=== PATIENT | female | born 1965 | race African-American/Black ===

== ENCOUNTER 2017-12-06 12:13 | Inpatient (IN) | payer OTHER ==
[2017-12-06 16:05] VITALS: BMI 24.6
--- NOTE | 2017-12-06 20:53 | HP ---
CIWA Score - CIWA Score Nausea/Vomitin-No Nausea/No Vomiting Muscle Tremors: 2 Anxiety: 2 Agitation: 2 Paroxysmal Sweats: 2 Orientation: 0-Oriented Tacttile Disturbances: 2-Mild Itch/Numbness/Burn (b/t feet, hands and knees) Auditory Disturbances: 0-None Visual Disturbances: 1-Very Mild Sensitivity Headache: 1-Very Mild CIWA-Ar Total Score: [address] [facility] - HPI Chief Complaint: "I am feeling sick" Allergies/Adverse Reactions: Allergies Allergy/AdvReac Type Severity Reaction Status Date / Time aspirin Allergy Intermediate Verified 12/06/17 19:58 Lactose-Intolerance AdvReac Severe Uncoded 12/06/17 19:58 History of Present Illness: 52 yo female with hx of alcohol, nicotine, marijuana and cocaine dependence is here seeking detox. PMHX: HTN , hyperlipidemia, GERD, OA multiple location, depression, PTSD, anxiety , bipolar. Denies suicidal / homicidal ideation or suicide attempts. Last detox 2 years ago at [facility]. Longest period of sobriety 5.5 years. Exam Limitations: No Limitations - Ebola screening Have you traveled outside of the country in the last 21 days: No (N) Have you had contact with anyone from an Ebola affected area: No Have you been sick,other than usual withdrawal symptoms: No Do you have a fever: No - Review of Systems Constitutional: Chills, Changes in sleep, Unintentional Wgt. Loss (5 lbs a 4 day period) EENT: reports: Blurred Vision (wears glasses), Dental Problems (dental pain, bottom tooth chipped) Respiratory: reports: No Symptoms reported Cardiac: reports: No Symptoms Reported GI: reports: Poor Fluid Intake : reports: No Symptoms Reported Musculoskeletal: reports: Back Pain, Joint Pain Integumentary: reports: No Symptoms Reported Neuro: reports: Numbness, Tingling, Dizziness Endocrine: reports: Increased Thirst Hematology: reports: No Symptoms Reported Psychiatric: reports: Orientated x3, Anxious Patient History - Patient Medical History Hx Anemia: No Hx Asthma: No Hx Chronic Obstructive Pulmonary Disease (COPD): No Hx Cancer: No Hx Cardiac Disorders: No Hx Congestive Heart Failure: No (hjeart murmur ) Hx Hypertension: Yes (on medication) Hx Hypercholesterolemia: Yes (on med) Hx Pacemaker: No HX Cerebrovascular Accident: No Hx Seizures: No Hx Dementia: No Hx Diabetes: No Hx Gastrointestinal Disorders: No Hx Liver Disease: No Hx Genitourinary Disorders: Yes (HPV in 10/2014) Hx Sexually Transmitted Disorders: Yes (HVP) Hx Renal Disease (ESRD): No Hx Thyroid Disease: No Hx Human Immunodeficiency Virus (HIV): No (last 01/07 ) Hx Hepatitis C: No Hx Depression: Yes Hx Suicide Attempt: No Hx Bipolar Disorder: Yes (no med) Hx Schizophrenia: No - Patient Surgical History Past Surgical History: No Hx Neurologic Surgery: No Hx Cataract Extraction: No Hx Cardiac Surgery: No Hx Lung Surgery: No Hx Breast Surgery: No Hx Breast Biopsy: No Hx Abdominal Surgery: No Hx Appendectomy: No Hx Cholecystectomy: No Hx Genitourinary Surgery: No Hx Section: No Hx Orthopedic Surgery: No Anesthesia Reaction: No - PPD History Previous Implant?: Yes Documented Results: Positive w/o proof PPD to be Administered?: No - Reproductive History Last Menstrual Period: 11/15/09 Patient : No - Smoking Cessation Smoking history: Current every day smoker Have you smoked in the past 12 months: Yes Aproximately how many cigarettes per day: 20 Hx Chewing Tobacco Use: No Initiated information on smoking cessation: Yes 'Breaking Loose' booklet given: 12/06/17 - Substance & Tx. History Hx Alcohol Use: Yes Hx Substance Use: Yes Substance Use Type: Alcohol, Cocaine, Marijuana Hx Substance Use Treatment: Yes (Last detox 2 years ago at [facility]) - Substances Abused Alcohol Route: Oral Frequency: Daily Amount used: liquor- 1 pint Age of first use: 12 Date of Last Use: 12/06/17 Crack Route: Smoking Frequency: Daily Amount used: 10 bags Age of first use: 18 Date of Last Use: 12/06/17 Family Disease History - Family Disease History Family Disease History: Other: Father (alcohol,), Mother () Admission Physical Exam [facility] - Vital Signs Vital Signs: Vital Signs - 24 hr 12/06/17 16:01 Pulse Rate 74 Respiratory 20 Rate Blood Pressure 140/89 - Physical General Appearance: Yes: Mild Distress, Sweating, Anxious HEENTM: Yes: EOMI, Hearing grossly Normal, Normal ENT Inspection, Normocephalic , Pharynx Normal, Tm's normal, Other (poor dentation) Respiratory: Yes: Chest Non-Tender, Lungs Clear, Normal Breath Sounds, No Respiratory Distress, No Accessory Muscle Use Neck: Yes: No masses,lesions,Nodules, Trachea in good position Breast: Yes: Breast Exam Deferred Cardiology: Yes: Regular Rhythm, Regular Rate, Murmur Abdominal: Yes: Normal Bowel Sounds, Non Tender, Flat, Soft Genitourinary: Yes: Within Normal Limits Back: Yes: Normal Inspection Musculoskeletal: Yes: full range of Motion, Gait Steady Extremities: Yes: Normal Capillary Refill, Normal Inspection, Normal Range of Motion Neurological: Yes: restaurant shift leader II-XII NML intact, Fully Oriented, Alert, Motor Strength 5/5 Integumentary: Yes: Normal Color, Dry, Warm Lymphatic: Yes: Within Normal Limits - Diagnostic (1) Alcohol dependence with withdrawal Current Visit: Yes Status: Acute Qualifiers: Complication of substance-induced condition: uncomplicated Qualified Code(s ): F10.230 - Alcohol dependence with withdrawal, uncomplicated (2) Dehydration Current Visit: Yes Status: Acute (3) Essential hypertension Current Visit: No Status: Acute Comment: . (4) Hypercholesterolemia Current Visit: Yes Status: Chronic Comment: . (5) Nicotine dependence Current Visit: Yes Status: Acute Qualifiers: Nicotine product type: cigarettes Comment: . (6) Weight loss Current Visit: Yes Status: Acute (7) Cannabis dependence Current Visit: Yes Status: Chronic Comment: . (8) Cocaine dependence Current Visit: Yes Status: Chronic Qualifiers: Substance use status: uncomplicated Qualified Code(s): F14.20 - Cocaine dependence, uncomplicated Comment: . (9) Eczema Current Visit: Yes Status: Chronic Qualifiers: Eczema type: unspecified Qualified Code(s): L30.9 - Dermatitis, unspecified Comment: . Cleared for Admission [facility] - Detox or Rehab [facility] Level of Care: Medically Managed Detox Regimen/Protocol: Librium [facility] Breath Alcohol Content Breath Alcohol Content: 0 Urine Pregancy Test - Result Urine Test Results: Negative- NO Line Present Urine Drug Screen - Results Drug Screen Negative: No Urine Drug Screen Results: THC-Marijuana, CHRISTINE-Cocaine
[2017-12-06] MEDS ORDERED: hydrOXYzine PAMOATE 50 MG CAPSULE (FP) PO PRN (21:02)
[2017-12-06] MEDS ORDERED: ACETAMINOPHEN 325 MG TABLET (FP) PO PRN (21:02)
[2017-12-06] MEDS ORDERED: MENTHOL/PHENOL 1 EACH UD MM PRN (21:02)
[2017-12-06] MEDS ORDERED: MAGNESIUM HYDROX 2400MG/30ML ORAL SUSPENSION 30 ML CUP PO PRN (21:02)
[2017-12-06] MEDS ORDERED: NICOTINE POLACRILEX 2 MG GUM BC PRN (21:02)
[2017-12-06] MEDS ORDERED: LOPERAMIDE HCL 2 MG CAPSULE PO PRN (21:02)
[2017-12-06] MEDS ORDERED: chlordiazePOXIDE HCL 25 MG CAPSULE PO ONE (21:02)
[2017-12-06] MEDS ORDERED: MAGNESIUM CITRATE 300 ML BOTTLE PO PRN (21:02)
[2017-12-06] MEDS ORDERED: MAG HYDROX/AL HYDROX/SIMETH 30 ML UNIT-DOSE CUP PO PRN (21:02)
[2017-12-06] MEDS ORDERED: guaiFENesin/D-METHORPHAN HB 10 ML UNIT-DOSE CUPS PO PRN (21:02)
[2017-12-06] MEDS ORDERED: chlordiazePOXIDE HCL 25 MG CAPSULE PO PRN (21:02)
[2017-12-06] MEDS ORDERED: P-EPHED 60MG/TRIPROLIDI 2.5MG TABLET PO PRN (21:02)
[2017-12-06] MEDS ORDERED: MELATONIN 5 MG TABLETS PO PRN (22:00)
[2017-12-06] MEDS: chlordiazePOXIDE HCL 25 MG CAPSULE PO SCH (22:26)
[2017-12-06] MEDS: NAPROXEN 500 MG TABLET (FP) PO SCH (22:26)
[2017-12-06] MEDS: CALCIUM 500MG/VIT-D 200 UNITS COMBO TABLET (FP) PO SCH (22:27)
[2017-12-06] MEDS: THIAMINE HCL 100 MG TABLET (FP) PO SCH (22:27)
[2017-12-06] MEDS ORDERED: BENZOCAINE 20 % GEL 9 GM TUBE MM PRN (23:15)
[2017-12-06 23:34] LABS: URINE APPEARANCE SLCLOUDY; URINE BILIRUBIN NEGATIVE (<2.0 mg/dL); URINE BLOOD NEGATIVE (NEGATIVE); URINE COLOR DKYELLOW; URINE GLUCOSE (UA) 1+ (NEGATIVE); URINE KETONE NEGATIVE (NEGATIVE); URINE LEUK ESTERASE TRACE (NEGATIVE); URINE NITRITE NEGATIVE (NEGATIVE); URINE UROBILINOGEN 4.0 E.U/dl mg/dL (0.2-1.0)
[2017-12-06] MEDS: LIDOCAINE 5% TOPICAL PATCH TP SCH (23:56)
[2017-12-06] MEDS: LIDOCAINE PATCH REMOVAL MC SCH (23:57)
[2017-12-07 00:11] LABS: URINE PROTEIN 1+ (NEGATIVE)
[2017-12-07 00:27] LABS: CALCIUM OXALATE CRYSTALS MANY /hpf (NONE SEEN); EPI CELLS RARE /HPF (FEW); URINE MUCUS FEW
[2017-12-07] MEDS: chlordiazePOXIDE HCL 25 MG CAPSULE PO SCH ×4 (06:13→22:31)
[2017-12-07] MEDS: METOPROLOL TARTRATE 50 MG TABLET (FP) PO SCH ×2 (06:14→18:00)
[2017-12-07] MEDS: HYDROCHLOROTHIAZIDE 25 MG TABLET (FP) PO SCH (06:14)
[2017-12-07 10:39] LABS: HEMOGLOBIN 12.7 GM/dL (10.7-15.3); MCH 30.8 pg (25.7-33.7); MCHC 33.4 g/dl (32.0-36.0); MEAN PLT VOLUME 9.9 fl (7.5-11.1); PLATELET COUNT 245 K/MM3 (134-434); RBC 4.13 M/mm3 (3.60-5.2); RDW 13.7 % (11.6-15.6); WHITE BLOOD COUNT 5.4 K/mm3 (4.0-10.0)
[2017-12-07 10:42] LABS: ALBUMIN 3.3 g/dl (3.4-5.0); ANION GAP 6 (8-16); BLOOD UREA NITROGEN 9 mg/dL (7-18); CHLORIDE 107 mmol/L (98-107); CO2 31 mmol/L (21-32); CREATININE 0.8 mg/dL (0.55-1.02); GLUCOSE,RANDOM 94 mg/dL (74-106); POTASSIUM 3.7 mmol/L (3.5-5.1); SGOT/AST 15 U/L (15-37); SGPT/ALT 17 U/L (12-78); SODIUM 144 mmol/L (136-145)
[2017-12-07 10:44] LABS: ALK PHOS 48 U/L (45-117); BILIRUBIN,TOTAL 0.4 mg/dL (0.2-1.0); TOT PROT 6.2 g/dl (6.4-8.2)
[2017-12-07] MEDS: CALCIUM 500MG/VIT-D 200 UNITS COMBO TABLET (FP) PO SCH ×2 (10:55→22:31)
[2017-12-07] MEDS: PRENATAL VITAMINS W/ FOLIC ACID TABLET (FP) PO SCH (10:55)
[2017-12-07] MEDS: PANTOPRAZOLE 40 MG TABLET (FP) PO SCH (10:55)
[2017-12-07] MEDS: NAPROXEN 500 MG TABLET (FP) PO SCH ×2 (10:55→22:31)
[2017-12-07] MEDS: NICOTINE 14 MG/24 HOURS TOPICAL PATCH TD SCH (10:56)
[2017-12-07] MEDS: LIDOCAINE 5% TOPICAL PATCH TP SCH (12:56)
--- NOTE | 2017-12-07 13:32 | PN ---
S CIWA - CIWA Score Nausea/Vomitin Muscle Tremors: 3 Anxiety: 3 Agitation: 3 Paroxysmal Sweats: 1-Minimal Palms Moist Orientation: 0-Oriented Tacttile Disturbances: 1-Very Mild Itch/Numbness Auditory Disturbances: 1-Very Mild Visual Disturbances: 0-None Headache: 2-Mild CIWA-Ar Total Score: 17 [facility] Progress Note (SOAP) Subjective: ALERT,IRRITABLE,ANXIOUS,INTERRUPTED SLEEP,TREMOR Objective: 12/07/17 13:30 Vital Signs Temperature 98.2 F 12/07/17 10:43 Pulse Rate 77 12/07/17 10:43 Respiratory Rate 18 12/07/17 10:43 Blood Pressure 144/77 12/07/17 10:43 O2 Sat by Pulse Oximetry (%) EKG NSR,NORMAL ECG Laboratory Last Values WBC 5.4 K/mm3 (4.0-10.0) 12/07/17 07:50 RBC 4.13 M/mm3 (3.60-5.2) 12/07/17 07:50 Hgb 12.7 GM/dL (10.7-15.3) 12/07/17 07:50 Hct 38.0 % (32.4-45.2) 12/07/17 07:50 MCV 92.0 fl (80-96) 12/07/17 07:50 MCH 30.8 pg (25.7-33.7) 12/07/17 07:50 MCHC 33.4 g/dl (32.0-36.0) 12/07/17 07:50 RDW 13.7 % (11.6-15.6) 12/07/17 07:50 Plt Count 245 K/MM3 (134-434) 12/07/17 07:50 MPV 9.9 fl (7.5-11.1) 12/07/17 07:50 Sodium 144 mmol/L (136-145) 12/07/17 07:50 Potassium 3.7 mmol/L (3.5-5.1) 12/07/17 07:50 Chloride 107 mmol/L (98-107) 12/07/17 07:50 Carbon Dioxide 31 mmol/L (21-32) 12/07/17 07:50 Anion Gap 6 (8-16) L 12/07/17 07:50 BUN 9 mg/dL (7-18) 12/07/17 07:50 Creatinine 0.8 mg/dL (0.55-1.02) 12/07/17 07:50 Creat Clearance w eGFR > 60 (>60) 12/07/17 07:50 Random Glucose 94 mg/dL (74-106) 12/07/17 07:50 Calcium 9.0 mg/dL (8.5-10.1) 12/07/17 07:50 Total Bilirubin 0.4 mg/dL (0.2-1.0) D 12/07/17 07:50 AST 15 U/L (15-37) 12/07/17 07:50 ALT 17 U/L (12-78) 12/07/17 07:50 Alkaline Phosphatase 48 U/L (45-117) 12/07/17 07:50 Total Protein 6.2 g/dl (6.4-8.2) L 12/07/17 07:50 Albumin 3.3 g/dl (3.4-5.0) L 12/07/17 07:50 Urine Color Dkyellow 12/06/17 21:47 Urine Appearance Slcloudy 12/06/17 21:47 Urine pH 6.0 (5.0-8.0) 12/06/17 21:47 Ur Specific [place] 1.027 (1.001-1.035) 12/06/17 21:47 Urine Protein 1+ (NEGATIVE) H 12/06/17 21:47 Urine Glucose (UA) 1+ (NEGATIVE) H 12/06/17 21:47 Urine Ketones Negative (NEGATIVE) 12/06/17 21:47 Urine Blood Negative (NEGATIVE) 12/06/17 21:47 Urine Nitrite Negative (NEGATIVE) 12/06/17 21:47 Urine Bilirubin Negative (<2.0 mg/dL) 12/06/17 21:47 Urine Urobilinogen 4.0 e.u/dl mg/dL (0.2-1.0) H 12/06/17 21:47 Ur Leukocyte Esterase Trace (NEGATIVE) 12/06/17 21:47 Urine WBC (Auto) 9 /hpf (3-5) 12/06/17 21:47 Urine RBC (Auto) None /hpf (0-3) 12/06/17 21:47 Ur Epithelial Cells Rare /HPF (FEW) 12/06/17 21:47 Calcium Oxalate Crystal Many /hpf (NONE SEEN) 12/06/17 21:47 Urine Mucus Few 12/06/17 21:47 RPR Titer Nonreactive (NONREACTIVE) 12/07/17 07:50 Assessment: 12/07/17 13:32 WITHDRAWAL SYMPTOM Plan: CONTINUE DETOX
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
[2017-12-07] MEDS: risperiDONE 1 MG TABLET (FP) PO SCH (22:31)
[2017-12-07] MEDS: THIAMINE HCL 100 MG TABLET (FP) PO SCH (22:31)
[2017-12-07] MEDS: LIDOCAINE PATCH REMOVAL MC SCH (22:33)
[2017-12-08] MEDS: HYDROCHLOROTHIAZIDE 25 MG TABLET (FP) PO SCH (05:24)
[2017-12-08] MEDS: METOPROLOL TARTRATE 50 MG TABLET (FP) PO SCH ×2 (05:24→18:55)
[2017-12-08] MEDS: chlordiazePOXIDE HCL 25 MG CAPSULE PO SCH ×3 (05:24→17:55)
[2017-12-08] MEDS: CALCIUM 500MG/VIT-D 200 UNITS COMBO TABLET (FP) PO SCH ×2 (10:27→22:25)
[2017-12-08] MEDS: risperiDONE 1 MG TABLET (FP) PO SCH ×2 (10:27→22:25)
[2017-12-08] MEDS: PANTOPRAZOLE 40 MG TABLET (FP) PO SCH (10:27)
[2017-12-08] MEDS: LIDOCAINE 5% TOPICAL PATCH TP SCH (10:28)
[2017-12-08] MEDS: NICOTINE 14 MG/24 HOURS TOPICAL PATCH TD SCH (10:28)
[2017-12-08] MEDS: NAPROXEN 500 MG TABLET (FP) PO SCH ×2 (10:28→22:25)
[2017-12-08] MEDS: PRENATAL VITAMINS W/ FOLIC ACID TABLET (FP) PO SCH (10:29)
--- NOTE | 2017-12-08 13:15 | PN ---
S CIWA - CIWA Score Nausea/Vomitin-Mild Nausea/No Vomiting Muscle Tremors: 4-Moderate,w/Arms Extend Anxiety: 3 Agitation: 3 Paroxysmal Sweats: 1-Minimal Palms Moist Orientation: 0-Oriented Tacttile Disturbances: 1-Very Mild Itch/Numbness Auditory Disturbances: 0-None Visual Disturbances: 0-None Headache: 1-Very Mild CIWA-Ar Total Score: 14 [facility] Progress Note (SOAP) Subjective: sweat tremor anxiety restlessness mild gi distress Objective: 12/08/17 13:16 Vital Signs Temperature 97.9 F 12/08/17 12:03 Pulse Rate 71 12/08/17 12:03 Respiratory Rate 18 12/08/17 12:03 Blood Pressure 133/76 12/08/17 12:03 O2 Sat by Pulse Oximetry (%) Laboratory Last Values WBC 5.4 K/mm3 (4.0-10.0) 12/07/17 07:50 RBC 4.13 M/mm3 (3.60-5.2) 12/07/17 07:50 Hgb 12.7 GM/dL (10.7-15.3) 12/07/17 07:50 Hct 38.0 % (32.4-45.2) 12/07/17 07:50 MCV 92.0 fl (80-96) 12/07/17 07:50 MCH 30.8 pg (25.7-33.7) 12/07/17 07:50 MCHC 33.4 g/dl (32.0-36.0) 12/07/17 07:50 RDW 13.7 % (11.6-15.6) 12/07/17 07:50 Plt Count 245 K/MM3 (134-434) 12/07/17 07:50 MPV 9.9 fl (7.5-11.1) 12/07/17 07:50 Sodium 144 mmol/L (136-145) 12/07/17 07:50 Potassium 3.7 mmol/L (3.5-5.1) 12/07/17 07:50 Chloride 107 mmol/L (98-107) 12/07/17 07:50 Carbon Dioxide 31 mmol/L (21-32) 12/07/17 07:50 Anion Gap 6 (8-16) L 12/07/17 07:50 BUN 9 mg/dL (7-18) 12/07/17 07:50 Creatinine 0.8 mg/dL (0.55-1.02) 12/07/17 07:50 Creat Clearance w eGFR > 60 (>60) 12/07/17 07:50 Random Glucose 94 mg/dL (74-106) 12/07/17 07:50 Calcium 9.0 mg/dL (8.5-10.1) 12/07/17 07:50 Total Bilirubin 0.4 mg/dL (0.2-1.0) D 12/07/17 07:50 AST 15 U/L (15-37) 12/07/17 07:50 ALT 17 U/L (12-78) 12/07/17 07:50 Alkaline Phosphatase 48 U/L (45-117) 12/07/17 07:50 Total Protein 6.2 g/dl (6.4-8.2) L 12/07/17 07:50 Albumin 3.3 g/dl (3.4-5.0) L 12/07/17 07:50 Urine Color Dkyellow 12/06/17 21:47 Urine Appearance Slcloudy 12/06/17 21:47 Urine pH 6.0 (5.0-8.0) 12/06/17 21:47 Ur Specific [place] 1.027 (1.001-1.035) 12/06/17 21:47 Urine Protein 1+ (NEGATIVE) H 12/06/17 21:47 Urine Glucose (UA) 1+ (NEGATIVE) H 12/06/17 21:47 Urine Ketones Negative (NEGATIVE) 12/06/17 21:47 Urine Blood Negative (NEGATIVE) 12/06/17 21:47 Urine Nitrite Negative (NEGATIVE) 12/06/17 21:47 Urine Bilirubin Negative (<2.0 mg/dL) 12/06/17 21:47 Urine Urobilinogen 4.0 e.u/dl mg/dL (0.2-1.0) H 12/06/17 21:47 Ur Leukocyte Esterase Trace (NEGATIVE) 12/06/17 21:47 Urine WBC (Auto) 9 /hpf (3-5) 12/06/17 21:47 Urine RBC (Auto) None /hpf (0-3) 12/06/17 21:47 Ur Epithelial Cells Rare /HPF (FEW) 12/06/17 21:47 Calcium Oxalate Crystal Many /hpf (NONE SEEN) 12/06/17 21:47 Urine Mucus Few 12/06/17 21:47 RPR Titer Nonreactive (NONREACTIVE) 12/07/17 07:50 lab noted increase oral fluid Assessment: 12/08/17 13:17 withdrawal sx Plan: continue detox
[2017-12-08] MEDS: chlordiazePOXIDE 5 MG CAPSULE PO SCH (22:25)
[2017-12-08] MEDS: THIAMINE HCL 100 MG TABLET (FP) PO SCH (22:25)
[2017-12-08] MEDS: LIDOCAINE PATCH REMOVAL MC SCH (22:40)
[2017-12-09] MEDS: HYDROCHLOROTHIAZIDE 25 MG TABLET (FP) PO SCH (05:50)
[2017-12-09] MEDS: chlordiazePOXIDE 5 MG CAPSULE PO SCH ×4 (05:50→18:25)
[2017-12-09] MEDS: METOPROLOL TARTRATE 50 MG TABLET (FP) PO SCH ×2 (05:50→18:25)
--- NOTE | 2017-12-09 10:06 | PN ---
S Progress Note (SOAP) Subjective: ALERT,IRRITABLE,ANXIOUS,INTERRUPTED SLEEP Objective: 12/09/17 10:03 ALERT,IRRITABLE,ANXIOUS,INTERRUPTED SLEEP 12/09/17 10:05 Vital Signs Temperature 96.0 F L 12/09/17 06:22 Pulse Rate 64 12/09/17 06:22 Respiratory Rate 18 12/09/17 06:22 Blood Pressure 157/92 12/09/17 06:22 O2 Sat by Pulse Oximetry (%) Assessment: 12/09/17 10:06 WITHDRAWAL SYMPTOM Plan: CONTINUE DETOX,DISCHARGE IN AM
[2017-12-09] MEDS: risperiDONE 1 MG TABLET (FP) PO SCH ×2 (10:30→22:18)
[2017-12-09] MEDS: CALCIUM 500MG/VIT-D 200 UNITS COMBO TABLET (FP) PO SCH ×2 (10:30→22:18)
[2017-12-09] MEDS: PRENATAL VITAMINS W/ FOLIC ACID TABLET (FP) PO SCH (10:30)
[2017-12-09] MEDS: NAPROXEN 500 MG TABLET (FP) PO SCH ×2 (10:30→22:17)
[2017-12-09] MEDS: PANTOPRAZOLE 40 MG TABLET (FP) PO SCH (10:30)
[2017-12-09] MEDS: NICOTINE 14 MG/24 HOURS TOPICAL PATCH TD SCH (10:31)
[2017-12-09] MEDS: LIDOCAINE 5% TOPICAL PATCH TP SCH (10:31)
--- NOTE | 2017-12-09 12:42 | EKG ---
Test Reason : Blood Pressure : / mmHG Vent. Rate : 074 BPM Atrial Rate : 074 BPM P-R Int : 146 ms QRS Dur : 084 ms QT Int : 384 ms P-R-T Axes : 070 054 036 degrees QTc Int : 426 ms NORMAL SINUS RHYTHM NORMAL ECG NO PREVIOUS ECGS AVAILABLE Confirmed by AZIZA TIWARI MD ([id number]) on 12/09/2017 12:42:33 PM Referred By: Confirmed By:AZIZA TIWARI MD
[2017-12-09] MEDS ORDERED: ATORVASTATIN CA 10 MG TABLET (FP) PO SCH (22:00)
[2017-12-09] MEDS: chlordiazePOXIDE HCL 10 MG CAPSULE PO SCH (22:17)
[2017-12-09] MEDS: THIAMINE HCL 100 MG TABLET (FP) PO SCH (22:17)
[2017-12-09] MEDS: LIDOCAINE PATCH REMOVAL MC SCH (22:29)
[2017-12-10] MEDS: HYDROCHLOROTHIAZIDE 25 MG TABLET (FP) PO SCH (05:45)
[2017-12-10] MEDS: METOPROLOL TARTRATE 50 MG TABLET (FP) PO SCH (05:45)
[2017-12-10] MEDS: chlordiazePOXIDE HCL 10 MG CAPSULE PO SCH ×2 (05:45→11:03)
--- NOTE | 2017-12-10 09:03 | PN ---
S Progress Note (SOAP) Subjective: ALERT,NO COMPLAINT Objective: 12/10/17 09:01 Vital Signs Temperature 97.3 F L 12/10/17 06:22 Pulse Rate 64 12/10/17 06:22 Respiratory Rate 18 12/10/17 06:22 Blood Pressure 139/75 12/10/17 06:22 O2 Sat by Pulse Oximetry (%) DETOX COMPLETED,NO WITHDRAWAL SYMPTOM Assessment: 12/10/17 09:02 DETOX COMPLETED,NO WITHDRAWAL SYMPTOM Plan: DISCHARGE TODAY,FOLLOW UP WITH AFTER CARE PROGRAM ARRANGEMENT
--- NOTE | 2017-12-10 09:06 | DS ---
[facility] Detox Discharge Summary Admission Date: 12/06/17 Discharge Date: 12/10/17 - History Present History: Alcohol Dependence, Cannabis Dependence, Cocaine Dependence Additional Comments: FOLLOW UP WITH [facility] Pertinent Past History: ESSENTIAL HYPERTENSION HYPERCHOLESTEROLEMIA NICOTINE DEPENDENCE WEIGHT LOSS ECZEMA - Physical Exam Results Vital Signs: Vital Signs Temperature 97.3 F L 12/10/17 06:22 Pulse Rate 64 12/10/17 06:22 Respiratory Rate 18 12/10/17 06:22 Blood Pressure 139/75 12/10/17 06:22 O2 Sat by Pulse Oximetry (%) Pertinent Admission Physical Exam Findings: WITHDRAWAL SIGNS AND SYMPTOM Vital Signs Temperature 97.3 F L 12/10/17 06:22 Pulse Rate 64 12/10/17 06:22 Respiratory Rate 18 12/10/17 06:22 Blood Pressure 139/75 12/10/17 06:22 O2 Sat by Pulse Oximetry (%) Laboratory Last Values WBC 5.4 K/mm3 (4.0-10.0) 12/07/17 07:50 RBC 4.13 M/mm3 (3.60-5.2) 12/07/17 07:50 Hgb 12.7 GM/dL (10.7-15.3) 12/07/17 07:50 Hct 38.0 % (32.4-45.2) 12/07/17 07:50 MCV 92.0 fl (80-96) 12/07/17 07:50 MCH 30.8 pg (25.7-33.7) 12/07/17 07:50 MCHC 33.4 g/dl (32.0-36.0) 12/07/17 07:50 RDW 13.7 % (11.6-15.6) 12/07/17 07:50 Plt Count 245 K/MM3 (134-434) 12/07/17 07:50 MPV 9.9 fl (7.5-11.1) 12/07/17 07:50 Sodium 144 mmol/L (136-145) 12/07/17 07:50 Potassium 3.7 mmol/L (3.5-5.1) 12/07/17 07:50 Chloride 107 mmol/L (98-107) 12/07/17 07:50 Carbon Dioxide 31 mmol/L (21-32) 12/07/17 07:50 Anion Gap 6 (8-16) L 12/07/17 07:50 BUN 9 mg/dL (7-18) 12/07/17 07:50 Creatinine 0.8 mg/dL (0.55-1.02) 12/07/17 07:50 Creat Clearance w eGFR > 60 (>60) 12/07/17 07:50 Random Glucose 94 mg/dL (74-106) 12/07/17 07:50 Calcium 9.0 mg/dL (8.5-10.1) 12/07/17 07:50 Total Bilirubin 0.4 mg/dL (0.2-1.0) D 12/07/17 07:50 AST 15 U/L (15-37) 12/07/17 07:50 ALT 17 U/L (12-78) 12/07/17 07:50 Alkaline Phosphatase 48 U/L (45-117) 12/07/17 07:50 Total Protein 6.2 g/dl (6.4-8.2) L 12/07/17 07:50 Albumin 3.3 g/dl (3.4-5.0) L 12/07/17 07:50 Urine Color Dkyellow 12/06/17 21:47 Urine Appearance Slcloudy 12/06/17 21:47 Urine pH 6.0 (5.0-8.0) 12/06/17 21:47 Ur Specific [place] 1.027 (1.001-1.035) 12/06/17 21:47 Urine Protein 1+ (NEGATIVE) H 12/06/17 21:47 Urine Glucose (UA) 1+ (NEGATIVE) H 12/06/17 21:47 Urine Ketones Negative (NEGATIVE) 12/06/17 21:47 Urine Blood Negative (NEGATIVE) 12/06/17 21:47 Urine Nitrite Negative (NEGATIVE) 12/06/17 21:47 Urine Bilirubin Negative (<2.0 mg/dL) 12/06/17 21:47 Urine Urobilinogen 4.0 e.u/dl mg/dL (0.2-1.0) H 12/06/17 21:47 Ur Leukocyte Esterase Trace (NEGATIVE) 12/06/17 21:47 Urine WBC (Auto) 9 /hpf (3-5) 12/06/17 21:47 Urine RBC (Auto) None /hpf (0-3) 12/06/17 21:47 Ur Epithelial Cells Rare /HPF (FEW) 12/06/17 21:47 Calcium Oxalate Crystal Many /hpf (NONE SEEN) 12/06/17 21:47 Urine Mucus Few 12/06/17 21:47 RPR Titer Nonreactive (NONREACTIVE) 12/07/17 07:50 - Treatment Hospital Course: Detox Protocol Followed, Detoxed Safely, Responded well, Discharged Condition Good, Rehab Referral Accepted Patient has Accepted a Rehab Referral to: [facility] - Medication Discharge Medications: Ambulatory Orders Calcium + Vitamin D Tablet 1 PO BID 05/07/15 Cyproheptadine HCl 1 mg PO TID 05/07/15 Pravastatin Sodium [Pravachol -] 10 mg PO HS 05/07/15 Naproxen [Naprosyn -] 500 mg PO BID #20 tablet 05/27/15 Thiamine HCl [Vitamin B1 -] 100 mg PO HS #30 tablet 05/27/15 Risperidone [Risperdal] 1 mg PO DAILY 12/06/17 Atorvastatin Ca [Lipitor] 10 mg PO HS #30 tablet 12/09/17 Hydrochlorothiazide [Hctz -] 25 mg PO DAILY@0600 #30 tablet 12/09/17 Metoprolol Tartrate [Lopressor -] 50 mg PO BID@0600,1800 #60 tablet 12/09/17 Pantoprazole Sodium [Protonix] 20 mg PO DAILY #30 tablet. 12/09/17 - Diagnosis (1) Alcohol dependence with withdrawal Current Visit: Yes Status: Acute Qualifiers: Complication of substance-induced condition: uncomplicated Qualified Code(s ): F10.230 - Alcohol dependence with withdrawal, uncomplicated (2) Dehydration Current Visit: Yes Status: Acute (3) Nicotine dependence Current Visit: Yes Status: Acute Qualifiers: Nicotine product type: cigarettes (4) Weight loss Current Visit: Yes Status: Acute (5) Cannabis dependence Current Visit: Yes Status: Chronic (6) Cocaine dependence Current Visit: Yes Status: Chronic Qualifiers: Substance use status: uncomplicated Qualified Code(s): F14.20 - Cocaine dependence, uncomplicated (7) Eczema Current Visit: Yes Status: Chronic Qualifiers: Eczema type: unspecified Qualified Code(s): L30.9 - Dermatitis, unspecified (8) Hypercholesterolemia Current Visit: Yes Status: Chronic (9) Essential hypertension Current Visit: No Status: Acute (10) Syncope Current Visit: No Status: Acute (11) G6PD deficiency Current Visit: No Status: Chronic (12) Substance induced mood disorder Current Visit: No Status: Chronic (13) Bipolar disorder Current Visit: Yes Status: Chronic - AMA Did Patient Leave Against Medical Advice: No
[2017-12-10] MEDS: PRENATAL VITAMINS W/ FOLIC ACID TABLET (FP) PO SCH (11:00)
[2017-12-10] MEDS: CALCIUM 500MG/VIT-D 200 UNITS COMBO TABLET (FP) PO SCH (11:00)
[2017-12-10] MEDS: risperiDONE 1 MG TABLET (FP) PO SCH (11:00)
[2017-12-10] MEDS: LIDOCAINE 5% TOPICAL PATCH TP SCH (11:00)
[2017-12-10] MEDS: PANTOPRAZOLE 40 MG TABLET (FP) PO SCH (11:00)
[2017-12-10] MEDS: NAPROXEN 500 MG TABLET (FP) PO SCH (11:01)
[2017-12-10] MEDS: NICOTINE 14 MG/24 HOURS TOPICAL PATCH TD SCH (11:01)
[2017-12-10 13:42] VITALS: BP 142/97; PULSE 93; TEMP 97.9
== END 2017-12-10 14:20 | disposition home or self-care (01) | DRG 774 ==
LOC: YASAS 12:13 → Y6N 19:14
PROVIDERS: ADMIT Internal Medicine; ATTEND Internal Medicine
PROC: HZ2ZZZZ Detoxification Services for Substance Abuse Treatment (ICD-10-PCS; principal; 2017-12-06)
DX: F10.230 Alcohol dependence with withdrawal, uncomplicated (principal); F14.20 Cocaine dependence, uncomplicated; F17.210 Nicotine dependence, cigarettes, uncomplicated; F31.9 Bipolar disorder, unspecified; F19.24 Other psychoactive substance dependence with psychoactive substance-induced mood disorder; F39 Unspecified mood [affective] disorder; F43.10 Post-traumatic stress disorder, unspecified; F41.9 Anxiety disorder, unspecified; L30.9 Dermatitis, unspecified; E86.0 Dehydration; R55 Syncope and collapse; D55.0 Anemia due to glucose-6-phosphate dehydrogenase [G6PD] deficiency; I10 Essential (primary) hypertension
CPT/HCPCS: 36415; 80053; 81003; 81015; 85027; 86593; 93005; 93010; J2794

== ENCOUNTER 2018-03-12 10:54 | Inpatient (IN) | payer OTHER ==
[2018-03-12 15:19] VITALS: BMI 23.8
--- NOTE | 2018-03-12 15:49 | HP ---
CIWA Score - CIWA Score Nausea/Vomitin Muscle Tremors: 3 Anxiety: 3 Agitation: 2 Paroxysmal Sweats: 1-Minimal Palms Moist Orientation: 0-Oriented Tacttile Disturbances: 1-Very Mild Itch/Numbness Auditory Disturbances: 1-Very Mild Visual Disturbances: 0-None Headache: 2-Mild CIWA-Ar Total Score: 16 Admission ROS BHS - HPI Chief Complaint: i need help to stop drinking alcohol,crack and marijuana Allergies/Adverse Reactions: Allergies Allergy/AdvReac Type Severity Reaction Status Date / Time aspirin Allergy Intermediate Verified 03/12/18 14:40 lactose AdvReac Severe LACTOSE Verified 03/12/18 16:06 INTOLERANCE Lactose-Intolerance AdvReac Severe Uncoded 03/12/18 14:40 History of Present Illness: this 52 years old female with alcohol,cocaine and marijuana dependence,seeking detox,withdrawal symptom,last detox 12/06/17 to 12/10/17 syncope alcohol related htn nicotine dependence bipolar disorder longest period of sobriety 6 years Exam Limitations: No Limitations - Ebola screening Have you traveled outside of the country in the last 21 days: No (N) Have you had contact with anyone from an Ebola affected area: No Have you been sick,other than usual withdrawal symptoms: No Do you have a fever: No - Review of Systems Constitutional: Loss of Appetite, Night Sweats, Changes in sleep, Weakness, Unintentional Wgt. Loss EENT: reports: Tearing, Nose Congestion Respiratory: reports: No Symptoms reported Cardiac: reports: No Symptoms Reported GI: reports: Diarrhea, Nausea, Vomiting, Abdominal cramping : reports: No Symptoms Reported Musculoskeletal: reports: Back Pain, Muscle Pain Integumentary: reports: Dryness Neuro: reports: Headache, Tremors Endocrine: reports: No Symptoms Reported Hematology: reports: No Symptoms Reported Psychiatric: reports: No Sypmtoms Reported, Judgement Intact, Mood/Affect Appropiate, other (bipolar disorder) Patient History - Patient Medical History Hx Anemia: No Hx Asthma: No Hx Chronic Obstructive Pulmonary Disease (COPD): No Hx Cancer: No Hx Cardiac Disorders: No Hx Congestive Heart Failure: No (hjeart murmur ) Hx Hypertension: Yes (on med) Hx Hypercholesterolemia: Yes (on med) Hx Pacemaker: No HX Cerebrovascular Accident: No Hx Seizures: No Hx Dementia: No Hx Diabetes: No Hx Gastrointestinal Disorders: Yes (acid reflux) Hx Liver Disease: No Hx Genitourinary Disorders: No Hx Sexually Transmitted Disorders: No Hx Renal Disease (ESRD): No Hx Thyroid Disease: No Hx Human Immunodeficiency Virus (HIV): No (last 02/10 negative) Hx Hepatitis C: No Hx Depression: Yes Hx Suicide Attempt: No Hx Bipolar Disorder: Yes (non compliance) Hx Schizophrenia: No Other Medical History: no suicidal,no homicidal - Patient Surgical History Past Surgical History: No Hx Neurologic Surgery: No Hx Cataract Extraction: No Hx Cardiac Surgery: No Hx Lung Surgery: No Hx Breast Surgery: No Hx Breast Biopsy: No Hx Abdominal Surgery: No Hx Appendectomy: No Hx Cholecystectomy: No Hx Genitourinary Surgery: No Hx Section: No Hx Orthopedic Surgery: No Anesthesia Reaction: No - PPD History Previous Implant?: Yes Documented Results: Positive w/o proof PPD to be Administered?: No - Reproductive History Patient is a Female of Child Bearing Age (11 -55 yrs old): Yes Last Menstrual Period: 11/15/09 Patient : No - Smoking Cessation Smoking history: Current every day smoker Have you smoked in the past 12 months: Yes Aproximately how many cigarettes per day: 30 Hx Chewing Tobacco Use: No Initiated information on smoking cessation: Yes 'Breaking Loose' booklet given: 03/12/18 - Substance & Tx. History Hx Alcohol Use: Yes Hx Substance Use: Yes Substance Use Type: Alcohol, Cocaine, Marijuana - Substances Abused Crack Route: Smoking Frequency: Daily Amount used: $200 Age of first use: 18 Date of Last Use: 03/11/18 Alcohol-vodka Route: Oral Frequency: Daily Amount used: 2 pts. Age of first use: 15 Date of Last Use: 03/11/18 Marijuana Route: Smoking Frequency: 3-6 times per week Amount used: $20 Age of first use: 12 Date of Last Use: 03/11/18 Family Disease History - Family Disease History Family Disease History: Other: Father (alcohol,), Mother () Admission Physical Exam BHS - Vital Signs Vital Signs: Vital Signs - 24 hr 03/12/18 15:16 Temperature 97.6 F Pulse Rate 77 Respiratory 16 Rate Blood Pressure 146/90 - Physical General Appearance: Yes: Moderate Distress, Tremorous, Irritable, Sweating, Anxious HEENTM: Yes: ARMINDA, Pharynx Normal Respiratory: Yes: Lungs Clear, Normal Breath Sounds, No Respiratory Distress Neck: Yes: Within Normal Limits, Supple, Trachea in good position Breast: Yes: Breast Exam Deferred Cardiology: Yes: Within Normal Limits, Regular Rhythm, Regular Rate, S1, S2 Abdominal: Yes: Within Normal Limits, Normal Bowel Sounds, Non Tender, Soft Genitourinary: Yes: Within Normal Limits Back: Yes: Muscle Spasm Musculoskeletal: Yes: Back pain, Muscle Pain Extremities: Yes: Tremors Neurological: Yes: computerized table cutter II-XII NML intact, Fully Oriented, Alert, Motor Strength 5/5 Integumentary: Yes: Dry Lymphatic: Yes: Within Normal Limits - Diagnostic (1) Alcohol dependence with withdrawal Current Visit: No Status: Acute Qualifiers: Complication of substance-induced condition: uncomplicated Qualified Code(s ): F10.230 - Alcohol dependence with withdrawal, uncomplicated (2) Dehydration Current Visit: No Status: Acute (3) Essential hypertension Current Visit: No Status: Acute Comment: . (4) Nicotine dependence Current Visit: No Status: Acute Qualifiers: Nicotine product type: cigarettes Comment: . (5) Syncope Current Visit: No Status: Acute (6) Weight loss Current Visit: No Status: Acute (7) Cannabis dependence Current Visit: No Status: Chronic Comment: . (8) Cocaine dependence Current Visit: No Status: Chronic Qualifiers: Substance use status: uncomplicated Qualified Code(s): F14.20 - Cocaine dependence, uncomplicated Comment: . (9) G6PD deficiency Current Visit: No Status: Chronic Comment: . (10) Hypercholesterolemia Current Visit: No Status: Chronic Comment: . Cleared for Admission [facility] - Detox or Rehab [facility] Level of Care: Medically Managed Detox Regimen/Protocol: Librium [facility] Breath Alcohol Content Breath Alcohol Content: 0 Urine Drug Screen - Results Drug Screen Negative: Yes Urine Drug Screen Results: THC-Marijuana, CHRISTINE-Cocaine
[2018-03-12] MEDS ORDERED: MAG HYDROX/AL HYDROX/SIMETH 30 ML UNIT-DOSE CUP PO PRN (15:58)
[2018-03-12] MEDS ORDERED: MAGNESIUM CITRATE 300 ML BOTTLE PO PRN (15:58)
[2018-03-12] MEDS ORDERED: chlordiazePOXIDE HCL 25 MG CAPSULE PO PRN (15:58)
[2018-03-12] MEDS ORDERED: ACETAMINOPHEN 325 MG TABLET (FP) PO PRN (15:58)
[2018-03-12] MEDS ORDERED: MENTHOL/PHENOL 1 EACH UD MM PRN (15:58)
[2018-03-12] MEDS ORDERED: MAGNESIUM HYDROX 2400MG/30ML ORAL SUSPENSION 30 ML CUP PO PRN (15:58)
[2018-03-12] MEDS ORDERED: P-EPHED 60MG/TRIPROLIDI 2.5MG TABLET PO PRN (15:58)
[2018-03-12] MEDS ORDERED: hydrOXYzine PAMOATE 25 MG CAPSULE (FP) PO PRN (15:58)
[2018-03-12] MEDS ORDERED: guaiFENesin/D-METHORPHAN HB 10 ML UNIT-DOSE CUPS PO PRN (15:58)
[2018-03-12] MEDS ORDERED: LOPERAMIDE HCL 2 MG CAPSULE PO PRN (15:58)
[2018-03-12] MEDS ORDERED: IBUPROFEN 400 MG TABLET (FP) PO PRN (15:58)
[2018-03-12] MEDS ORDERED: MELATONIN 5 MG TABLETS PO PRN (22:00)
[2018-03-12] MEDS: chlordiazePOXIDE HCL 25 MG CAPSULE PO SCH (22:37)
[2018-03-12] MEDS: THIAMINE HCL 100 MG TABLET (FP) PO SCH (22:38)
[2018-03-12 22:58] LABS: URINE APPEARANCE TURBID; URINE BILIRUBIN NEGATIVE (<2.0 mg/dL); URINE COLOR YELLOW; URINE GLUCOSE (UA) NEGATIVE (NEGATIVE); URINE KETONE TRACE (NEGATIVE); URINE LEUK ESTERASE 1+ (NEGATIVE); URINE NITRITE NEGATIVE (NEGATIVE); URINE PROTEIN 2+ (NEGATIVE)
[2018-03-12 23:01] LABS: URINE BACTERIA MANY /hpf (NONE SEEN); URINE MUCUS MODERATE; YEAST FEW
[2018-03-13] MEDS: chlordiazePOXIDE HCL 25 MG CAPSULE PO SCH ×4 (06:25→23:50)
[2018-03-13] MEDS ORDERED: cloNIDine HCL 0.1 MG TABLET PO ONE (06:37)
--- NOTE | 2018-03-13 06:43 | PN ---
BHS Progress Note Note: Patient's blood pressure this morning is B/P 167/113. Patient is asymptomatic. Vital Signs Temperature 98.8 F 03/13/18 06:40 Pulse Rate 77 03/13/18 06:40 Respiratory Rate 18 03/13/18 06:40 Blood Pressure 167/113 03/13/18 06:40 O2 Sat by Pulse Oximetry (%) Action: Clonidine 0.1mg tablet oral given
--- NOTE | 2018-03-13 07:40 | CONSULT ---
[facility] Psychiatric Consult - Data Date of interview: 03/13/18 Admission source: [facility] Identifying data: This is 52 years old female, single, unemployed, living with family, with no income, history of Bipolar disorder, with alcohol,cocaine and marijuana dependence,seeking detox reporting withdrawal symptoms,. Patient denies psychiatric hospitalization history Substance Abuse History: Smoking history: Current every day smoker. Have you smoked in the past 12 months: Yes. Aproximately how many cigarettes per day: 30. Hx Chewing Tobacco Use: No. Initiated information on smoking cessation: Yes. 'Breaking Loose' booklet given: 03/12/18. - Substance & Tx. History. Hx Alcohol Use: Yes. Hx Substance Use: Yes. Substance Use Type: Alcohol, Cocaine , Marijuana. - Substances Abused. Crack. Route: Smoking. Frequency: Daily. Amount used: $200. Age of first use: 18. Date of Last Use: 03/11/18. Alcohol-vodka. Route: Oral. Frequency: Daily. Amount used: 2 pts. Age of first use: 15. Date of Last Use: 03/11/18. Marijuana. Route: Smoking. Frequency: 3-6 times per week. Amount used: $20. Age of first use: 12. Date of Last Use: 03/11/18 Medical History: HTN, Weight loss, Hypercholesterolemia, Syncope history, NON Compliance with medications, Psychiatric History: As per lina bpatient suffers with Bipolar disorder, patient denies spsychiatric hospitalization history, reports history of depression and anxiety, reports taking Risperdal 1mg poqd prior to admission, denies suicidal and homicidal history. Physical/Sexual Abuse/Trauma History: Denies Additional Comment: Risperdal 1mg poqd Mental Status Exam - Mental Status Exam Alert and Oriented to: Person Cognitive Function: Fair Patient Appearance: Unkempt Mood: Sad Affect: Flat Patient Behavior: Sedated Speech Pattern: Delayed Voice Loudness: Mildly Soft/Quiet Thought Process: Circumstantial Thought Disorder: Being Controlled Hallucinations: Denies Suicidal Ideation: Denies Homicidal Ideation: Denies Insight/Judgement: Fair Sleep: Difficulty falling asleep Appetite: Weight loss Muscle strength/Tone: Mild Hypotonicity Gait/Station: Shuffling Additional Comments: Risperdal 1mg poqd Psychiatric Findings - Problem List ([place] 1, 2,3) (1) Alcohol dependence with withdrawal Current Visit: No Status: Acute Qualifiers: Complication of substance-induced condition: uncomplicated Qualified Code(s ): F10.230 - Alcohol dependence with withdrawal, uncomplicated (2) Mood disorder Current Visit: No Status: Acute (3) Syncope Current Visit: No Status: Acute (4) Weight loss Current Visit: No Status: Acute (5) Alcohol dependence Current Visit: No Status: Chronic Comment: . (6) Bipolar disorder Current Visit: No Status: Chronic Comment: History. (7) Cannabis dependence Current Visit: No Status: Chronic Comment: . (8) Cocaine dependence Current Visit: No Status: Chronic Qualifiers: Substance use status: uncomplicated Qualified Code(s): F14.20 - Cocaine dependence, uncomplicated Comment: . (9) Eczema Current Visit: No Status: Chronic Qualifiers: Eczema type: unspecified Qualified Code(s): L30.9 - Dermatitis, unspecified Comment: . (10) G6PD deficiency Current Visit: No Status: Chronic Comment: . (11) Hypercholesterolemia Current Visit: No Status: Chronic Comment: . (12) Substance induced mood disorder Current Visit: No Status: Chronic Comment: . - Initial Treatment Plan Initial Treatment Plan: Risperdal 1mg poqd
[2018-03-13 10:14] LABS: HEMATOCRIT 36.9 % (32.4-45.2); HEMOGLOBIN 12.3 GM/dL (10.7-15.3); MCH 31.1 pg (25.7-33.7); MCHC 33.2 g/dl (32.0-36.0); MEAN CELL VOLUME 93.5 fl (80-96); MEAN PLT VOLUME 10.3 fl (7.5-11.1); PLATELET COUNT 281 K/MM3 (134-434); RBC 3.94 M/mm3 (3.60-5.2); RDW 13.7 % (11.6-15.6); WHITE BLOOD COUNT 6.2 K/mm3 (4.0-10.0)
[2018-03-13 10:52] LABS: ALBUMIN 3.6 g/dl (3.4-5.0); ALK PHOS 58 U/L (45-117); ANION GAP 7 (8-16); BILIRUBIN,TOTAL 0.3 mg/dL (0.2-1.0); BLOOD UREA NITROGEN 8 mg/dL (7-18); CHLORIDE 106 mmol/L (98-107); CO2 29 mmol/L (21-32); CREATININE 0.9 mg/dL (0.55-1.02); GLUCOSE,RANDOM 93 mg/dL (74-106); POTASSIUM 3.4 mmol/L (3.5-5.1); SGOT/AST 16 U/L (15-37); SGPT/ALT 18 U/L (12-78); SODIUM 142 mmol/L (136-145); TOT PROT 7.1 g/dl (6.4-8.2)
--- NOTE | 2018-03-13 10:55 | PN ---
[facility] CIWA - CIWA Score Nausea/Vomitin-Mild Nausea/No Vomiting Muscle Tremors: 4-Moderate,w/Arms Extend Anxiety: 4-Mod. Anxious/Guarded Agitation: 3 Paroxysmal Sweats: 1-Minimal Palms Moist Orientation: 0-Oriented Tacttile Disturbances: 1-Very Mild Itch/Numbness Auditory Disturbances: 0-None Visual Disturbances: 0-None Headache: 0-None Present CIWA-Ar Total Score: 14 BHS Progress Note (SOAP) Subjective: SWEAT TREMOR RESTLESSNESS IRRITABLE Objective: 03/13/18 10:57 Vital Signs Temperature 97.7 F 03/13/18 10:24 Pulse Rate 61 03/13/18 10:24 Respiratory Rate 18 03/13/18 10:24 Blood Pressure 133/84 03/13/18 10:24 O2 Sat by Pulse Oximetry (%) Laboratory Last Values WBC 6.2 K/mm3 (4.0-10.0) 03/13/18 06:00 RBC 3.94 M/mm3 (3.60-5.2) 03/13/18 06:00 Hgb 12.3 GM/dL (10.7-15.3) 03/13/18 06:00 Hct 36.9 % (32.4-45.2) 03/13/18 06:00 MCV 93.5 fl (80-96) 03/13/18 06:00 MCH 31.1 pg (25.7-33.7) 03/13/18 06:00 MCHC 33.2 g/dl (32.0-36.0) 03/13/18 06:00 RDW 13.7 % (11.6-15.6) 03/13/18 06:00 Plt Count 281 K/MM3 (134-434) 03/13/18 06:00 MPV 10.3 fl (7.5-11.1) 03/13/18 06:00 Sodium 142 mmol/L (136-145) 03/13/18 06:00 Potassium 3.4 mmol/L (3.5-5.1) L 03/13/18 06:00 Chloride 106 mmol/L (98-107) 03/13/18 06:00 Carbon Dioxide 29 mmol/L (21-32) 03/13/18 06:00 Anion Gap 7 (8-16) L 03/13/18 06:00 BUN 8 mg/dL (7-18) 03/13/18 06:00 Creatinine 0.9 mg/dL (0.55-1.02) 03/13/18 06:00 Creat Clearance w eGFR > 60 (>60) 03/13/18 06:00 Random Glucose 93 mg/dL (74-106) 03/13/18 06:00 Calcium 9.0 mg/dL (8.5-10.1) 03/13/18 06:00 Total Bilirubin 0.3 mg/dL (0.2-1.0) 03/13/18 06:00 AST 16 U/L (15-37) 03/13/18 06:00 ALT 18 U/L (12-78) 03/13/18 06:00 Alkaline Phosphatase 58 U/L (45-117) 03/13/18 06:00 Total Protein 7.1 g/dl (6.4-8.2) 03/13/18 06:00 Albumin 3.6 g/dl (3.4-5.0) 03/13/18 06:00 Urine Color Yellow 03/12/18 22:40 Urine Appearance Turbid 03/12/18 22:40 Urine pH 5.0 (5.0-8.0) 03/12/18 22:40 Ur Specific [place] 1.030 (1.001-1.035) 03/12/18 22:40 Urine Protein 2+ (NEGATIVE) H 03/12/18 22:40 Urine Glucose (UA) Negative (NEGATIVE) 03/12/18 22:40 Urine Ketones Trace (NEGATIVE) H 03/12/18 22:40 Urine Blood Negative (NEGATIVE) 03/12/18 22:40 Urine Nitrite Negative (NEGATIVE) 03/12/18 22:40 Urine Bilirubin Negative (<2.0 mg/dL) 03/12/18 22:40 Urine Urobilinogen 2.0 mg/dL (0.2-1.0) H 03/12/18 22:40 Ur Leukocyte Esterase 1+ (NEGATIVE) H 03/12/18 22:40 Urine WBC (Auto) 20 /hpf (3-5) 03/12/18 22:40 Urine RBC (Auto) 3 /hpf (0-3) 03/12/18 22:40 Urine Bacteria Many /hpf (NONE SEEN) 03/12/18 22:40 Urine Mucus Moderate 03/12/18 22:40 Urine Yeast Few 03/12/18 22:40 LAB NOTED REPEAT UA REPEAT k+ ON 03/15/18 k+ SUPPLEMENT 03/13/18 11:01 Assessment: 03/13/18 11:01 WITHDRAWAL SX Plan: CONTINUE DETOX
[2018-03-13] MEDS: risperiDONE 1 MG TABLET (FP) PO SCH (11:18)
[2018-03-13] MEDS: PRENATAL VITAMINS W/ FOLIC ACID TABLET (FP) PO SCH (11:18)
[2018-03-13] MEDS: METOPROLOL TARTRATE 50 MG TABLET (FP) PO SCH ×2 (12:00→23:50)
[2018-03-13] MEDS: HYDROCHLOROTHIAZIDE 25 MG TABLET (FP) PO SCH (12:00)
[2018-03-13] MEDS: POTASSIUM CHLORIDE TABS 20 MEQ TABLET.ER (FP) PO SCH (12:00)
--- NOTE | 2018-03-13 14:27 | EKG ---
Test Reason : Blood Pressure : / mmHG Vent. Rate : 070 BPM Atrial Rate : 070 BPM P-R Int : 154 ms QRS Dur : 078 ms QT Int : 406 ms P-R-T Axes : 051 056 032 degrees QTc Int : 438 ms NORMAL SINUS RHYTHM NORMAL ECG WHEN COMPARED WITH ECG OF 06-DEC-2017 21:49, NO SIGNIFICANT CHANGE WAS FOUND Confirmed by DUSTIN STOVER MD ([id number]) on 03/13/2018 2:26:32 PM Referred By: Confirmed By:DUSTIN STOVER MD
[2018-03-13] MEDS: THIAMINE HCL 100 MG TABLET (FP) PO SCH (23:50)
[2018-03-14] MEDS: chlordiazePOXIDE HCL 25 MG CAPSULE PO SCH ×3 (05:45→17:44)
[2018-03-14 10:32] LABS: URINE APPEARANCE SLCLOUDY; URINE BILIRUBIN NEGATIVE (<2.0 mg/dL); URINE COLOR YELLOW; URINE GLUCOSE (UA) NEGATIVE (NEGATIVE); URINE KETONE NEGATIVE (NEGATIVE); URINE NITRITE NEGATIVE (NEGATIVE); URINE PROTEIN NEGATIVE (NEGATIVE); URINE UROBILINOGEN NEGATIVE mg/dL (0.2-1.0)
[2018-03-14 10:59] LABS: URINE LEUK ESTERASE 3+ (NEGATIVE)
[2018-03-14 11:09] LABS: EPI CELLS RARE /HPF (FEW); URINE HYALINE CAST 105 /lpf; URINE MUCUS RARE
[2018-03-14] MEDS: HYDROCHLOROTHIAZIDE 25 MG TABLET (FP) PO SCH (11:11)
[2018-03-14] MEDS: risperiDONE 1 MG TABLET (FP) PO SCH (11:11)
[2018-03-14] MEDS: METOPROLOL TARTRATE 50 MG TABLET (FP) PO SCH ×2 (11:11→22:39)
[2018-03-14] MEDS: POTASSIUM CHLORIDE TABS 20 MEQ TABLET.ER (FP) PO SCH (11:11)
[2018-03-14] MEDS: PRENATAL VITAMINS W/ FOLIC ACID TABLET (FP) PO SCH (11:11)
--- NOTE | 2018-03-14 15:20 | PN ---
[facility] CIWA - CIWA Score Nausea/Vomitin-No Nausea/No Vomiting Muscle Tremors: 1-None Visible, but [place] Anxiety: 1-Mildly Anxious Agitation: 1-Slight > Activity Paroxysmal Sweats: 1-Minimal Palms Moist Orientation: 0-Oriented Tacttile Disturbances: 0-None Auditory Disturbances: 0-None Visual Disturbances: 0-None Headache: 0-None Present CIWA-Ar Total Score: 4 S Progress Note (SOAP) Subjective: pt states is on 2 BP meds but thinks she may need additional meds, doing well with detox Objective: 03/14/18 15:22 Laboratory Tests 03/12/18 03/13/18 03/13/18 22:40 06:00 06:00 WBC 6.2 RBC 3.94 Hgb 12.3 Hct 36.9 MCV 93.5 MCH 31.1 MCHC 33.2 RDW 13.7 Plt Count 281 MPV 10.3 Sodium 142 Potassium 3.4 L Chloride 106 Carbon Dioxide 29 Anion Gap 7 L BUN 8 Creatinine 0.9 Creat Clearance w eGFR > 60 Random Glucose 93 Calcium 9.0 Total Bilirubin 0.3 AST 16 ALT 18 Alkaline Phosphatase 58 Total Protein 7.1 Albumin 3.6 Urine Color Yellow Urine Appearance Turbid Urine pH 5.0 Ur Specific [place] 1.030 Urine Protein 2+ H Urine Glucose (UA) Negative Urine Ketones Trace H Urine Blood Negative Urine Nitrite Negative Urine Bilirubin Negative Urine Urobilinogen 2.0 H Ur Leukocyte Esterase 1+ H Urine WBC (Auto) 20 Urine RBC (Auto) 3 Ur Epithelial Cells Urine Bacteria Many Hyaline Casts Urine Mucus Moderate Urine Yeast Few RPR Titer 03/13/18 03/14/18 06:00 08:00 WBC RBC Hgb Hct MCV MCH MCHC RDW Plt Count MPV Sodium Potassium Chloride Carbon Dioxide Anion Gap BUN Creatinine Creat Clearance w eGFR Random Glucose Calcium Total Bilirubin AST ALT Alkaline Phosphatase Total Protein Albumin Urine Color Yellow Urine Appearance Slcloudy Urine pH 6.0 Ur Specific [place] 1.017 Urine Protein Negative Urine Glucose (UA) Negative Urine Ketones Negative Urine Blood Negative Urine Nitrite Negative Urine Bilirubin Negative Urine Urobilinogen Negative Ur Leukocyte Esterase 3+ H D Urine WBC (Auto) None Urine RBC (Auto) 1 Ur Epithelial Cells Rare Urine Bacteria Hyaline Casts 105 Urine Mucus Rare Urine Yeast RPR Titer Nonreactive Vital Signs - 24 hr 03/13/18 03/13/1803/14/18 18:53 22:54 00:30 Temperature 97.7 F 97.5 F L Pulse Rate 65 79 Respiratory 18 18 18 Rate Blood Pressure 121/69 131/83 03/14/18 03/14/18 03/14/18 03:30 06:21 14:00 Temperature 98.1 F 99.1 F Pulse Rate 67 93 H Respiratory 18 17 16 Rate Blood Pressure 150/89 133/76 VS WNL mildly decrased K pt ambulating without problems Assessment: 03/14/18 15:23 alcohol use disorder mildly decreased K Plan: continue alcohol detox protocol will replete K BP WNL on 2 meds
[2018-03-14] MEDS: THIAMINE HCL 100 MG TABLET (FP) PO SCH (22:39)
[2018-03-14] MEDS: chlordiazePOXIDE 5 MG CAPSULE PO SCH (22:39)
[2018-03-15] MEDS: chlordiazePOXIDE 5 MG CAPSULE PO SCH ×3 (06:10→18:17)
[2018-03-15] MEDS: PRENATAL VITAMINS W/ FOLIC ACID TABLET (FP) PO SCH (10:34)
[2018-03-15] MEDS: METOPROLOL TARTRATE 50 MG TABLET (FP) PO SCH ×2 (10:34→23:07)
[2018-03-15] MEDS: HYDROCHLOROTHIAZIDE 25 MG TABLET (FP) PO SCH (10:34)
[2018-03-15] MEDS: POTASSIUM CHLORIDE TABS 20 MEQ TABLET.ER (FP) PO SCH (10:35)
[2018-03-15] MEDS: risperiDONE 1 MG TABLET (FP) PO SCH (10:36)
--- NOTE | 2018-03-15 14:34 | PN ---
S Progress Note (SOAP) Subjective: alert,irritable,anxious,interrupted sleep Objective: 03/15/18 14:33 Vital Signs Temperature 97.5 F L 03/15/18 11:42 Pulse Rate 66 03/15/18 11:42 Respiratory Rate 14 03/15/18 11:42 Blood Pressure 122/56 03/15/18 11:42 O2 Sat by Pulse Oximetry (%) Assessment: 03/15/18 14:34 withdrawal symptom Plan: continue detox,discharge in am
[2018-03-15] MEDS: chlordiazePOXIDE HCL 10 MG CAPSULE PO SCH (23:07)
[2018-03-15] MEDS: THIAMINE HCL 100 MG TABLET (FP) PO SCH (23:07)
[2018-03-16] MEDS: chlordiazePOXIDE HCL 10 MG CAPSULE PO SCH (05:48)
--- NOTE | 2018-03-16 09:06 | DS ---
[facility] Detox Discharge Summary Admission Date: 03/12/18 Discharge Date: 03/16/18 - History Present History: Alcohol Dependence Additional Comments: 52 years old female admitted on 03/12/18 for alcohol withdrawal sx completed alcohol detox regimen tolerated well denies alcohol withdrawal sx alert oriented x 3 no acute distress aftercare [facility] - Physical Exam Results Vital Signs: Vital Signs Temperature 97.9 F 03/16/18 08:10 Pulse Rate 60 03/16/18 08:10 Respiratory Rate 18 03/16/18 08:10 Blood Pressure 142/75 03/16/18 08:10 O2 Sat by Pulse Oximetry (%) Pertinent Admission Physical Exam Findings: alcohol withdrawal sx Vital Signs Temperature 99.0 F 03/16/18 10:29 Pulse Rate 88 03/16/18 10:29 Respiratory Rate 16 03/16/18 10:29 Blood Pressure 141/71 03/16/18 10:29 O2 Sat by Pulse Oximetry (%) Laboratory Last Values WBC 6.2 K/mm3 (4.0-10.0) 03/13/18 06:00 RBC 3.94 M/mm3 (3.60-5.2) 03/13/18 06:00 Hgb 12.3 GM/dL (10.7-15.3) 03/13/18 06:00 Hct 36.9 % (32.4-45.2) 03/13/18 06:00 MCV 93.5 fl (80-96) 03/13/18 06:00 MCH 31.1 pg (25.7-33.7) 03/13/18 06:00 MCHC 33.2 g/dl (32.0-36.0) 03/13/18 06:00 RDW 13.7 % (11.6-15.6) 03/13/18 06:00 Plt Count 281 K/MM3 (134-434) 03/13/18 06:00 MPV 10.3 fl (7.5-11.1) 03/13/18 06:00 Sodium 142 mmol/L (136-145) 03/13/18 06:00 Potassium 4.1 mmol/L (3.5-5.1) 03/15/18 07:30 Chloride 106 mmol/L (98-107) 03/13/18 06:00 Carbon Dioxide 29 mmol/L (21-32) 03/13/18 06:00 Anion Gap 7 (8-16) L 03/13/18 06:00 BUN 8 mg/dL (7-18) 03/13/18 06:00 Creatinine 0.9 mg/dL (0.55-1.02) 03/13/18 06:00 Creat Clearance w eGFR > 60 (>60) 03/13/18 06:00 Random Glucose 93 mg/dL (74-106) 03/13/18 06:00 Calcium 9.0 mg/dL (8.5-10.1) 03/13/18 06:00 Total Bilirubin 0.3 mg/dL (0.2-1.0) 03/13/18 06:00 AST 16 U/L (15-37) 03/13/18 06:00 ALT 18 U/L (12-78) 03/13/18 06:00 Alkaline Phosphatase 58 U/L (45-117) 03/13/18 06:00 Total Protein 7.1 g/dl (6.4-8.2) 03/13/18 06:00 Albumin 3.6 g/dl (3.4-5.0) 03/13/18 06:00 Urine Color Yellow 03/14/18 08:00 Urine Appearance Slcloudy 03/14/18 08:00 Urine pH 6.0 (5.0-8.0) 03/14/18 08:00 Ur Specific [place] 1.017 (1.001-1.035) 03/14/18 08:00 Urine Protein Negative (NEGATIVE) 03/14/18 08:00 Urine Glucose (UA) Negative (NEGATIVE) 03/14/18 08:00 Urine Ketones Negative (NEGATIVE) 03/14/18 08:00 Urine Blood Negative (NEGATIVE) 03/14/18 08:00 Urine Nitrite Negative (NEGATIVE) 03/14/18 08:00 Urine Bilirubin Negative (<2.0 mg/dL) 03/14/18 08:00 Urine Urobilinogen Negative mg/dL (0.2-1.0) 03/14/18 08:00 Ur Leukocyte Esterase 3+ (NEGATIVE) H D 03/14/18 08:00 Urine WBC (Auto) None /hpf (3-5) 03/14/18 08:00 Urine RBC (Auto) 1 /hpf (0-3) 03/14/18 08:00 Ur Epithelial Cells Rare /HPF (FEW) 03/14/18 08:00 Urine Bacteria Many /hpf (NONE SEEN) 03/12/18 22:40 Hyaline Casts 105 /lpf 03/14/18 08:00 Urine Mucus Rare 03/14/18 08:00 Urine Yeast Few 03/12/18 22:40 RPR Titer Nonreactive (NONREACTIVE) 03/13/18 06:00 lab noted - Treatment Hospital Course: Detox Protocol Followed, Detoxed Safely, Responded well, Discharged Condition Good, Rehab Referral Accepted Patient has Accepted a Rehab Referral to: [facility] - Medication Discharge Medications: Ambulatory Orders Naproxen [Naprosyn -] 500 mg PO BID #20 tablet 05/27/15 Pantoprazole Sodium [Protonix] 20 mg PO DAILY #30 tablet. 12/09/17 Risperidone [Risperdal -] 1 mg PO DAILY #30 tablet 03/13/18 Hydrochlorothiazide [Hctz -] 25 mg PO DAILY@0600 #14 tablet 03/16/18 Metoprolol Tartrate [Lopressor -] 50 mg PO BID@0600,1800 #30 tablet 03/16/18 - Diagnosis (1) Alcohol dependence with withdrawal Status: Acute Qualifiers: Complication of substance-induced condition: uncomplicated Qualified Code(s ): F10.230 - Alcohol dependence with withdrawal, uncomplicated (2) Essential hypertension Status: Chronic (3) Nicotine dependence Status: Acute Qualifiers: Nicotine product type: cigarettes Substance use status: in withdrawal Qualified Code(s): F17.213 - Nicotine dependence, cigarettes, with withdrawal (4) Weight loss Status: Acute (5) Eczema Status: Chronic Qualifiers: Eczema type: unspecified Qualified Code(s): L30.9 - Dermatitis, unspecified - AMA Did Patient Leave Against Medical Advice: No
[2018-03-16] MEDS: HYDROCHLOROTHIAZIDE 25 MG TABLET (FP) PO SCH (09:21)
[2018-03-16] MEDS: METOPROLOL TARTRATE 50 MG TABLET (FP) PO SCH (09:21)
[2018-03-16] MEDS: POTASSIUM CHLORIDE TABS 20 MEQ TABLET.ER (FP) PO SCH (09:21)
[2018-03-16] MEDS: PRENATAL VITAMINS W/ FOLIC ACID TABLET (FP) PO SCH (09:21)
[2018-03-16] MEDS: risperiDONE 1 MG TABLET (FP) PO SCH (09:21)
[2018-03-16 10:29] VITALS: BP 141/71; PULSE 88; TEMP 99
== END 2018-03-16 10:52 | disposition other institution (70) | DRG 774 ==
LOC: YASAS 10:54 → Y6N 15:25
PROVIDERS: ADMIT Surgery; ATTEND Surgery
PROC: HZ2ZZZZ Detoxification Services for Substance Abuse Treatment (ICD-10-PCS; principal; 2018-03-12)
DX: F10.230 Alcohol dependence with withdrawal, uncomplicated (principal); F14.20 Cocaine dependence, uncomplicated; F12.20 Cannabis dependence, uncomplicated; F17.213 Nicotine dependence, cigarettes, with withdrawal; F39 Unspecified mood [affective] disorder; F31.9 Bipolar disorder, unspecified; D55.0 Anemia due to glucose-6-phosphate dehydrogenase [G6PD] deficiency; L30.9 Dermatitis, unspecified; R01.1 Cardiac murmur, unspecified; R63.4 Abnormal weight loss; Z68.23 Body mass index [BMI] 23.0-23.9, adult; Z88.6 Allergy status to analgesic agent; Z91.011 Allergy to milk products
CPT/HCPCS: 36415; 71046-TC-FY; 80053; 81003; 81015; 84132; 85027; 86593; 93005; 93010; J0735; J2794

== ENCOUNTER 2018-03-16 11:50 | Inpatient (IN) | payer OTHER ==
--- NOTE | 2018-03-16 12:29 | HP ---
[facility] Rehab Assess/Revision - Admission History Admitted to Rehab from: [facility] Date of Admission to Rehab: 03/16/18 - Vital signs Vital Signs: Vital Signs Period Temp Pulse Resp BP Sys/Wolff Pulse Ox Last 24 Hr 97.3 F 76 16 115/70 - Findings Detox History & Physical reviewed: Yes Concur with findings: Yes Comments/Additional Findings: transferred from detox to rehab admission as per protocol Inpatient Rehab Admission - Rehab Admission Criteria Previous failed treatment: Yes Poor recovery environment: Yes Comorbidities: Yes Lacks judgement: No Patient is meeting Inpatient Rehab admission criteria:: Yes
[2018-03-16] MEDS ORDERED: NICOTINE 14 MG/24 HOURS TOPICAL PATCH TD PRN (12:30)
[2018-03-16] MEDS ORDERED: MENTHOL/PHENOL 1 EACH UD MM PRN (12:30)
[2018-03-16] MEDS ORDERED: P-EPHED 60MG/TRIPROLIDI 2.5MG TABLET PO PRN (12:30)
[2018-03-16] MEDS ORDERED: MAGNESIUM CITRATE 300 ML BOTTLE PO PRN (12:30)
[2018-03-16] MEDS ORDERED: MAGNESIUM HYDROX 2400MG/30ML ORAL SUSPENSION 30 ML CUP PO PRN (12:30)
[2018-03-16] MEDS ORDERED: LOPERAMIDE HCL 2 MG CAPSULE PO PRN (12:30)
[2018-03-16] MEDS ORDERED: IBUPROFEN 400 MG TABLET (FP) PO PRN (12:30)
[2018-03-16] MEDS ORDERED: MAG HYDROX/AL HYDROX/SIMETH 30 ML UNIT-DOSE CUP PO PRN (12:30)
[2018-03-16] MEDS ORDERED: guaiFENesin/D-METHORPHAN HB 10 ML UNIT-DOSE CUPS PO PRN (12:30)
[2018-03-16] MEDS ORDERED: NICOTINE POLACRILEX 2 MG GUM BUC PRN (12:30)
--- NOTE | 2018-03-16 12:57 | PN ---
[facility] Progress Note Note: Psychiatrist compensation coordinator note: Called by nursing staff to order medication for newly admitted patient from Detox. Medication reconciliation done. Risperdal 1 mg po daily ordered. I was also asked to place an order for Vistaril 25 mg po Q 4hrs prn for anxiety
[2018-03-16] MEDS ORDERED: METOPROLOL TARTRATE 50 MG TABLET (FP) PO SCH (18:00)
[2018-03-16] MEDS: METOPROLOL TARTRATE 50 MG TABLET (FP) PO SCH (18:55)
[2018-03-16] MEDS: RANITIDINE HCL 150 MG TABLET (FP) PO SCH (21:58)
[2018-03-16] MEDS: THIAMINE HCL 100 MG TABLET (FP) PO SCH (21:58)
[2018-03-16] MEDS ORDERED: MELATONIN 5 MG TABLETS PO PRN (22:00)
[2018-03-17] MEDS ORDERED: HYDROCHLOROTHIAZIDE 25 MG TABLET (FP) PO SCH (06:00)
[2018-03-17] MEDS: METOPROLOL TARTRATE 50 MG TABLET (FP) PO SCH ×2 (06:53→18:49)
[2018-03-17] MEDS: HYDROCHLOROTHIAZIDE 25 MG TABLET (FP) PO SCH (06:53)
[2018-03-17] MEDS: PRENATAL VITAMINS W/ FOLIC ACID TABLET (FP) PO SCH (10:19)
[2018-03-17] MEDS: risperiDONE 1 MG TABLET (FP) PO SCH (10:19)
[2018-03-17] MEDS: RANITIDINE HCL 150 MG TABLET (FP) PO SCH ×2 (10:20→21:43)
--- NOTE | 2018-03-17 11:02 | HP ---
Psychiatrist Admission - Data Date of interview: 03/17/18 Admission source: Self-referred Identifying data: This is the [facility] Inpatient Rehabilitation admission for this 52 years old single Black female, unemployed, domiciled Medical History: Significant for hypertension, dyslipidemia, heart murmur, PPD+ and GERD. Smokes cigarettes 1.5 ppd Vital Signs: Vital Signs - 24 hr 03/16/18 03/17/18 03/17/18 11:54 00:30 03:30 Temperature 97.3 F L Pulse Rate 76 Respiratory 16 18 18 Rate Blood Pressure 115/70 03/17/18 07:29 Temperature 97.4 F L Pulse Rate 64 Respiratory 18 Rate Blood Pressure 125/82 Allergies/Adverse Reactions: Allergies Allergy/AdvReac Type Severity Reaction Status Date / Time aspirin Allergy Intermediate Verified 03/12/18 14:40 lactose AdvReac Severe LACTOSE Verified 03/12/18 16:06 INTOLERANCE Lactose-Intolerance AdvReac Severe Uncoded 03/12/18 14:40 Date of last physical exam: 03/16/18 Concur with the findings of this exam: Yes - Substance Abuse/Tx History Hx Alcohol Use: Yes Hx Substance Use: Yes Substance Use Type: Alcohol (Started drinking alcohol at age 15, consumes 2 pints of vodka daily. Last drank on 03/11/18), Cocaine (Started smoking crack cocaine at age 18, consumes $200 worth daily. Last smoked on 03/11/18), Marijuana (Started smoking marijuana at age 12, consumes $20 worth 3-6 times weekly. Last smoked on 03/11/18) Hx Substance Use Treatment: Yes (3 previous inpt detox & one inpt rehab dmissions @ [facility]) Psychiatric Findings - Problem List ([place] 1, 2,3) (1) Alcohol dependence Current Visit: Yes Status: Acute (2) Cocaine dependence Current Visit: No Status: Acute Qualifiers: Substance use status: uncomplicated Qualified Code(s): F14.20 - Cocaine dependence, uncomplicated Comment: . (3) Cannabis dependence Current Visit: No Status: Acute Comment: . (4) Nicotine dependence Current Visit: No Status: Chronic Qualifiers: Nicotine product type: cigarettes Substance use status: in withdrawal Qualified Code(s): F17.213 - Nicotine dependence, cigarettes, with withdrawal Comment: .
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
[2018-03-17] MEDS: ACETAMINOPHEN 325 MG TABLET (FP) PO PRN (20:59)
[2018-03-17] MEDS: THIAMINE HCL 100 MG TABLET (FP) PO SCH (21:43)
[2018-03-18] MEDS: HYDROCHLOROTHIAZIDE 25 MG TABLET (FP) PO SCH (06:30)
[2018-03-18] MEDS: METOPROLOL TARTRATE 50 MG TABLET (FP) PO SCH ×2 (06:30→17:46)
[2018-03-18] MEDS: risperiDONE 1 MG TABLET (FP) PO SCH (10:26)
[2018-03-18] MEDS: PRENATAL VITAMINS W/ FOLIC ACID TABLET (FP) PO SCH (10:26)
[2018-03-18] MEDS: RANITIDINE HCL 150 MG TABLET (FP) PO SCH ×2 (10:27→21:38)
[2018-03-18] MEDS ORDERED: hydrOXYzine PAMOATE 25 MG CAPSULE (FP) PO PRN (10:53)
--- NOTE | 2018-03-18 14:42 | PN ---
[facility] Progress Note Note: Psychiatric nurse practitioner note: -Delayed entry: Call received by RN @ 10:45 am stating patient is complaining of anxiety. Chart reviewed. Dr. Santana and Dr. Motta's note read and appreciated. Will order vistaril 25mg q4h. Verbal consent given.
[2018-03-18] MEDS: THIAMINE HCL 100 MG TABLET (FP) PO SCH (21:38)
[2018-03-19] MEDS: HYDROCHLOROTHIAZIDE 25 MG TABLET (FP) PO SCH (06:44)
[2018-03-19] MEDS: METOPROLOL TARTRATE 50 MG TABLET (FP) PO SCH ×2 (06:44→18:55)
[2018-03-19] MEDS: RANITIDINE HCL 150 MG TABLET (FP) PO SCH ×2 (10:22→21:44)
[2018-03-19] MEDS: PRENATAL VITAMINS W/ FOLIC ACID TABLET (FP) PO SCH (10:22)
[2018-03-19] MEDS: risperiDONE 1 MG TABLET (FP) PO SCH (10:22)
[2018-03-19] MEDS: ACETAMINOPHEN 325 MG TABLET (FP) PO PRN (12:00)
[2018-03-19] MEDS: THIAMINE HCL 100 MG TABLET (FP) PO SCH (21:44)
[2018-03-20] MEDS: METOPROLOL TARTRATE 50 MG TABLET (FP) PO SCH ×2 (06:31→18:30)
[2018-03-20] MEDS: HYDROCHLOROTHIAZIDE 25 MG TABLET (FP) PO SCH (06:31)
[2018-03-20] MEDS: PRENATAL VITAMINS W/ FOLIC ACID TABLET (FP) PO SCH (10:11)
[2018-03-20] MEDS: RANITIDINE HCL 150 MG TABLET (FP) PO SCH ×2 (10:11→21:47)
[2018-03-20] MEDS: risperiDONE 1 MG TABLET (FP) PO SCH (10:11)
[2018-03-20] MEDS: THIAMINE HCL 100 MG TABLET (FP) PO SCH (21:47)
[2018-03-21] MEDS: HYDROCHLOROTHIAZIDE 25 MG TABLET (FP) PO SCH (06:45)
[2018-03-21] MEDS: METOPROLOL TARTRATE 50 MG TABLET (FP) PO SCH ×2 (06:45→18:30)
[2018-03-21] MEDS: PRENATAL VITAMINS W/ FOLIC ACID TABLET (FP) PO SCH (10:46)
[2018-03-21] MEDS: RANITIDINE HCL 150 MG TABLET (FP) PO SCH ×2 (10:46→21:32)
[2018-03-21] MEDS: risperiDONE 1 MG TABLET (FP) PO SCH (10:46)
[2018-03-21] MEDS: THIAMINE HCL 100 MG TABLET (FP) PO SCH (21:32)
[2018-03-22] MEDS: METOPROLOL TARTRATE 50 MG TABLET (FP) PO SCH ×2 (06:38→17:40)
[2018-03-22] MEDS: HYDROCHLOROTHIAZIDE 25 MG TABLET (FP) PO SCH (06:38)
[2018-03-22] MEDS: RANITIDINE HCL 150 MG TABLET (FP) PO SCH ×2 (10:04→21:35)
[2018-03-22] MEDS: risperiDONE 1 MG TABLET (FP) PO SCH (10:04)
[2018-03-22] MEDS: PRENATAL VITAMINS W/ FOLIC ACID TABLET (FP) PO SCH (10:04)
[2018-03-22] MEDS: THIAMINE HCL 100 MG TABLET (FP) PO SCH (21:35)
[2018-03-23] MEDS: HYDROCHLOROTHIAZIDE 25 MG TABLET (FP) PO SCH (06:24)
[2018-03-23] MEDS: METOPROLOL TARTRATE 50 MG TABLET (FP) PO SCH ×2 (06:24→19:00)
[2018-03-23] MEDS: risperiDONE 1 MG TABLET (FP) PO SCH (09:51)
[2018-03-23] MEDS: PRENATAL VITAMINS W/ FOLIC ACID TABLET (FP) PO SCH (09:51)
[2018-03-23] MEDS: RANITIDINE HCL 150 MG TABLET (FP) PO SCH ×2 (09:51→21:29)
[2018-03-23] MEDS: ACETAMINOPHEN 325 MG TABLET (FP) PO PRN (09:52)
[2018-03-23] MEDS: THIAMINE HCL 100 MG TABLET (FP) PO SCH (21:29)
[2018-03-24] MEDS: HYDROCHLOROTHIAZIDE 25 MG TABLET (FP) PO SCH (06:17)
[2018-03-24] MEDS: METOPROLOL TARTRATE 50 MG TABLET (FP) PO SCH ×2 (06:17→18:25)
[2018-03-24] MEDS: RANITIDINE HCL 150 MG TABLET (FP) PO SCH ×2 (10:29→22:16)
[2018-03-24] MEDS: risperiDONE 1 MG TABLET (FP) PO SCH (10:30)
[2018-03-24] MEDS: PRENATAL VITAMINS W/ FOLIC ACID TABLET (FP) PO SCH (10:30)
[2018-03-24] MEDS: ACETAMINOPHEN 325 MG TABLET (FP) PO PRN (13:32)
[2018-03-24] MEDS: THIAMINE HCL 100 MG TABLET (FP) PO SCH (22:16)
[2018-03-25] MEDS: HYDROCHLOROTHIAZIDE 25 MG TABLET (FP) PO SCH (06:37)
[2018-03-25] MEDS: METOPROLOL TARTRATE 50 MG TABLET (FP) PO SCH ×2 (06:38→17:13)
[2018-03-25] MEDS: PRENATAL VITAMINS W/ FOLIC ACID TABLET (FP) PO SCH (10:09)
[2018-03-25] MEDS: risperiDONE 1 MG TABLET (FP) PO SCH (10:10)
[2018-03-25] MEDS: RANITIDINE HCL 150 MG TABLET (FP) PO SCH ×2 (10:10→22:05)
[2018-03-25] MEDS: THIAMINE HCL 100 MG TABLET (FP) PO SCH (22:05)
[2018-03-26] MEDS: HYDROCHLOROTHIAZIDE 25 MG TABLET (FP) PO SCH (06:34)
[2018-03-26] MEDS: METOPROLOL TARTRATE 50 MG TABLET (FP) PO SCH ×2 (06:34→17:50)
[2018-03-26] MEDS: risperiDONE 1 MG TABLET (FP) PO SCH (10:04)
[2018-03-26] MEDS: PRENATAL VITAMINS W/ FOLIC ACID TABLET (FP) PO SCH (10:04)
[2018-03-26] MEDS: RANITIDINE HCL 150 MG TABLET (FP) PO SCH ×2 (10:04→21:39)
[2018-03-26] MEDS: THIAMINE HCL 100 MG TABLET (FP) PO SCH (21:38)
[2018-03-27] MEDS: METOPROLOL TARTRATE 50 MG TABLET (FP) PO SCH ×2 (06:52→18:30)
[2018-03-27] MEDS: HYDROCHLOROTHIAZIDE 25 MG TABLET (FP) PO SCH (06:52)
[2018-03-27] MEDS ORDERED: PT OWN MED DRAWER 7, Y5N ONE (08:18)
[2018-03-27] MEDS: risperiDONE 1 MG TABLET (FP) PO SCH (10:11)
[2018-03-27] MEDS: RANITIDINE HCL 150 MG TABLET (FP) PO SCH ×2 (10:11→21:29)
[2018-03-27] MEDS: PRENATAL VITAMINS W/ FOLIC ACID TABLET (FP) PO SCH (10:11)
[2018-03-27] MEDS: THIAMINE HCL 100 MG TABLET (FP) PO SCH (21:29)
[2018-03-28] MEDS: METOPROLOL TARTRATE 50 MG TABLET (FP) PO SCH ×2 (06:28→18:54)
[2018-03-28] MEDS: HYDROCHLOROTHIAZIDE 25 MG TABLET (FP) PO SCH (06:28)
[2018-03-28] MEDS: RANITIDINE HCL 150 MG TABLET (FP) PO SCH ×2 (10:19→21:43)
[2018-03-28] MEDS: risperiDONE 1 MG TABLET (FP) PO SCH (10:19)
[2018-03-28] MEDS: PRENATAL VITAMINS W/ FOLIC ACID TABLET (FP) PO SCH (10:19)
[2018-03-28] MEDS: THIAMINE HCL 100 MG TABLET (FP) PO SCH (21:43)
[2018-03-29] MEDS: METOPROLOL TARTRATE 50 MG TABLET (FP) PO SCH ×2 (06:21→19:09)
[2018-03-29] MEDS: HYDROCHLOROTHIAZIDE 25 MG TABLET (FP) PO SCH (06:21)
[2018-03-29] MEDS: PRENATAL VITAMINS W/ FOLIC ACID TABLET (FP) PO SCH (09:38)
[2018-03-29] MEDS: RANITIDINE HCL 150 MG TABLET (FP) PO SCH ×2 (09:38→21:29)
[2018-03-29] MEDS: risperiDONE 1 MG TABLET (FP) PO SCH (09:38)
[2018-03-29] MEDS: THIAMINE HCL 100 MG TABLET (FP) PO SCH (21:29)
[2018-03-30] MEDS: METOPROLOL TARTRATE 50 MG TABLET (FP) PO SCH ×2 (06:26→18:09)
[2018-03-30] MEDS: HYDROCHLOROTHIAZIDE 25 MG TABLET (FP) PO SCH (06:26)
[2018-03-30] MEDS: risperiDONE 1 MG TABLET (FP) PO SCH (10:21)
[2018-03-30] MEDS: PRENATAL VITAMINS W/ FOLIC ACID TABLET (FP) PO SCH (10:21)
[2018-03-30] MEDS: RANITIDINE HCL 150 MG TABLET (FP) PO SCH ×2 (10:21→21:34)
[2018-03-30] MEDS: THIAMINE HCL 100 MG TABLET (FP) PO SCH (21:34)
[2018-03-31] MEDS: HYDROCHLOROTHIAZIDE 25 MG TABLET (FP) PO SCH (06:23)
[2018-03-31] MEDS: METOPROLOL TARTRATE 50 MG TABLET (FP) PO SCH ×2 (06:23→17:32)
[2018-03-31] MEDS: risperiDONE 1 MG TABLET (FP) PO SCH (10:24)
[2018-03-31] MEDS: RANITIDINE HCL 150 MG TABLET (FP) PO SCH ×2 (10:24→21:34)
[2018-03-31] MEDS: PRENATAL VITAMINS W/ FOLIC ACID TABLET (FP) PO SCH (10:24)
[2018-03-31] MEDS: THIAMINE HCL 100 MG TABLET (FP) PO SCH (21:33)
[2018-04-01] MEDS: METOPROLOL TARTRATE 50 MG TABLET (FP) PO SCH ×2 (06:13→18:23)
[2018-04-01] MEDS: HYDROCHLOROTHIAZIDE 25 MG TABLET (FP) PO SCH (06:13)
[2018-04-01] MEDS: PRENATAL VITAMINS W/ FOLIC ACID TABLET (FP) PO SCH (10:08)
[2018-04-01] MEDS: RANITIDINE HCL 150 MG TABLET (FP) PO SCH ×2 (10:09→21:31)
[2018-04-01] MEDS: risperiDONE 1 MG TABLET (FP) PO SCH (10:09)
[2018-04-01] MEDS: THIAMINE HCL 100 MG TABLET (FP) PO SCH (21:31)
[2018-04-02] MEDS: METOPROLOL TARTRATE 50 MG TABLET (FP) PO SCH ×2 (06:41→18:30)
[2018-04-02] MEDS: HYDROCHLOROTHIAZIDE 25 MG TABLET (FP) PO SCH (06:41)
[2018-04-02] MEDS: RANITIDINE HCL 150 MG TABLET (FP) PO SCH ×2 (10:05→21:38)
[2018-04-02] MEDS: PRENATAL VITAMINS W/ FOLIC ACID TABLET (FP) PO SCH (10:05)
[2018-04-02] MEDS: risperiDONE 1 MG TABLET (FP) PO SCH (10:05)
[2018-04-02] MEDS: THIAMINE HCL 100 MG TABLET (FP) PO SCH (21:38)
[2018-04-03] MEDS: METOPROLOL TARTRATE 50 MG TABLET (FP) PO SCH ×2 (06:39→17:45)
[2018-04-03] MEDS: HYDROCHLOROTHIAZIDE 25 MG TABLET (FP) PO SCH (06:39)
[2018-04-03] MEDS: risperiDONE 1 MG TABLET (FP) PO SCH (10:03)
[2018-04-03] MEDS: RANITIDINE HCL 150 MG TABLET (FP) PO SCH ×2 (10:03→21:39)
[2018-04-03] MEDS: PRENATAL VITAMINS W/ FOLIC ACID TABLET (FP) PO SCH (10:03)
[2018-04-03] MEDS: THIAMINE HCL 100 MG TABLET (FP) PO SCH (21:39)
[2018-04-04] MEDS: METOPROLOL TARTRATE 50 MG TABLET (FP) PO SCH ×2 (06:42→18:57)
[2018-04-04] MEDS: HYDROCHLOROTHIAZIDE 25 MG TABLET (FP) PO SCH (06:42)
[2018-04-04] MEDS: risperiDONE 1 MG TABLET (FP) PO SCH (09:57)
[2018-04-04] MEDS: PRENATAL VITAMINS W/ FOLIC ACID TABLET (FP) PO SCH (09:57)
[2018-04-04] MEDS: RANITIDINE HCL 150 MG TABLET (FP) PO SCH ×2 (09:57→21:31)
[2018-04-04] MEDS: THIAMINE HCL 100 MG TABLET (FP) PO SCH (21:31)
[2018-04-05] MEDS: HYDROCHLOROTHIAZIDE 25 MG TABLET (FP) PO SCH (06:09)
[2018-04-05] MEDS: METOPROLOL TARTRATE 50 MG TABLET (FP) PO SCH ×2 (06:09→18:15)
[2018-04-05] MEDS: RANITIDINE HCL 150 MG TABLET (FP) PO SCH ×2 (09:15→21:22)
[2018-04-05] MEDS: risperiDONE 1 MG TABLET (FP) PO SCH (09:15)
[2018-04-05] MEDS: PRENATAL VITAMINS W/ FOLIC ACID TABLET (FP) PO SCH (09:15)
[2018-04-05] MEDS: THIAMINE HCL 100 MG TABLET (FP) PO SCH (21:22)
[2018-04-06] MEDS: METOPROLOL TARTRATE 50 MG TABLET (FP) PO SCH ×2 (06:19→18:00)
[2018-04-06] MEDS: HYDROCHLOROTHIAZIDE 25 MG TABLET (FP) PO SCH (06:19)
[2018-04-06] MEDS: RANITIDINE HCL 150 MG TABLET (FP) PO SCH ×2 (09:59→21:26)
[2018-04-06] MEDS: PRENATAL VITAMINS W/ FOLIC ACID TABLET (FP) PO SCH (09:59)
[2018-04-06] MEDS: risperiDONE 1 MG TABLET (FP) PO SCH (09:59)
[2018-04-06] MEDS: THIAMINE HCL 100 MG TABLET (FP) PO SCH (21:26)
[2018-04-07] MEDS: HYDROCHLOROTHIAZIDE 25 MG TABLET (FP) PO SCH (06:17)
[2018-04-07] MEDS: METOPROLOL TARTRATE 50 MG TABLET (FP) PO SCH ×2 (06:17→17:46)
[2018-04-07] MEDS: PRENATAL VITAMINS W/ FOLIC ACID TABLET (FP) PO SCH (10:42)
[2018-04-07] MEDS: RANITIDINE HCL 150 MG TABLET (FP) PO SCH ×2 (10:42→21:32)
[2018-04-07] MEDS: risperiDONE 1 MG TABLET (FP) PO SCH (10:42)
[2018-04-07] MEDS: THIAMINE HCL 100 MG TABLET (FP) PO SCH (21:32)
[2018-04-08] MEDS: HYDROCHLOROTHIAZIDE 25 MG TABLET (FP) PO SCH (07:13)
[2018-04-08] MEDS: METOPROLOL TARTRATE 50 MG TABLET (FP) PO SCH ×2 (07:14→18:44)
[2018-04-08] MEDS: risperiDONE 1 MG TABLET (FP) PO SCH (10:01)
[2018-04-08] MEDS: RANITIDINE HCL 150 MG TABLET (FP) PO SCH ×2 (10:01→21:44)
[2018-04-08] MEDS: PRENATAL VITAMINS W/ FOLIC ACID TABLET (FP) PO SCH (10:01)
[2018-04-08] MEDS: THIAMINE HCL 100 MG TABLET (FP) PO SCH (21:44)
[2018-04-09] MEDS: METOPROLOL TARTRATE 50 MG TABLET (FP) PO SCH ×2 (06:11→17:45)
[2018-04-09] MEDS: HYDROCHLOROTHIAZIDE 25 MG TABLET (FP) PO SCH (06:12)
[2018-04-09] MEDS: risperiDONE 1 MG TABLET (FP) PO SCH (10:06)
[2018-04-09] MEDS: RANITIDINE HCL 150 MG TABLET (FP) PO SCH ×2 (10:06→21:23)
[2018-04-09] MEDS: PRENATAL VITAMINS W/ FOLIC ACID TABLET (FP) PO SCH (10:06)
[2018-04-09] MEDS: THIAMINE HCL 100 MG TABLET (FP) PO SCH (21:23)
[2018-04-10] MEDS: METOPROLOL TARTRATE 50 MG TABLET (FP) PO SCH ×2 (06:20→18:31)
[2018-04-10] MEDS: HYDROCHLOROTHIAZIDE 25 MG TABLET (FP) PO SCH (06:20)
[2018-04-10] MEDS: PRENATAL VITAMINS W/ FOLIC ACID TABLET (FP) PO SCH (09:55)
[2018-04-10] MEDS: RANITIDINE HCL 150 MG TABLET (FP) PO SCH ×2 (09:55→21:31)
[2018-04-10] MEDS: risperiDONE 1 MG TABLET (FP) PO SCH (09:55)
[2018-04-10] MEDS: THIAMINE HCL 100 MG TABLET (FP) PO SCH (21:31)
[2018-04-11] MEDS: HYDROCHLOROTHIAZIDE 25 MG TABLET (FP) PO SCH (06:18)
[2018-04-11] MEDS: METOPROLOL TARTRATE 50 MG TABLET (FP) PO SCH ×2 (06:19→18:17)
[2018-04-11] MEDS: PRENATAL VITAMINS W/ FOLIC ACID TABLET (FP) PO SCH (10:13)
[2018-04-11] MEDS: risperiDONE 1 MG TABLET (FP) PO SCH (10:13)
[2018-04-11] MEDS: RANITIDINE HCL 150 MG TABLET (FP) PO SCH ×2 (10:14→21:17)
[2018-04-11] MEDS: THIAMINE HCL 100 MG TABLET (FP) PO SCH (21:17)
[2018-04-12] MEDS: HYDROCHLOROTHIAZIDE 25 MG TABLET (FP) PO SCH (06:35)
[2018-04-12] MEDS: METOPROLOL TARTRATE 50 MG TABLET (FP) PO SCH ×2 (06:35→17:56)
[2018-04-12] MEDS: risperiDONE 1 MG TABLET (FP) PO SCH (10:05)
[2018-04-12] MEDS: PRENATAL VITAMINS W/ FOLIC ACID TABLET (FP) PO SCH (10:05)
[2018-04-12] MEDS: RANITIDINE HCL 150 MG TABLET (FP) PO SCH ×2 (10:05→21:19)
[2018-04-12] MEDS: THIAMINE HCL 100 MG TABLET (FP) PO SCH (21:19)
[2018-04-13] MEDS: METOPROLOL TARTRATE 50 MG TABLET (FP) PO SCH ×2 (06:05→18:05)
[2018-04-13] MEDS: HYDROCHLOROTHIAZIDE 25 MG TABLET (FP) PO SCH (06:05)
[2018-04-13] MEDS: PRENATAL VITAMINS W/ FOLIC ACID TABLET (FP) PO SCH (10:09)
[2018-04-13] MEDS: risperiDONE 1 MG TABLET (FP) PO SCH (10:09)
[2018-04-13] MEDS: RANITIDINE HCL 150 MG TABLET (FP) PO SCH ×2 (10:09→21:16)
[2018-04-13] MEDS: THIAMINE HCL 100 MG TABLET (FP) PO SCH (21:16)
[2018-04-14] MEDS: HYDROCHLOROTHIAZIDE 25 MG TABLET (FP) PO SCH (06:05)
[2018-04-14 07:07] VITALS: TEMP 97.9
[2018-04-14] MEDS: METOPROLOL TARTRATE 50 MG TABLET (FP) PO SCH (07:41)
--- NOTE | 2018-04-14 08:14 | PN ---
Psychiatric Progress Note Vital Signs: Vital Signs Period Temp Pulse Resp BP Sys/Wolff Pulse Ox Last 24 Hr 97.9 F-98.2 F 54-67 -18 121-147/76-80 Date of Session: 04/14/18 Chief Complaint:: Discharge visit HPI: Patient addressed Alcohol,Cocaine dependence comorbid with Substance induced mood disorder. ROS: Eczema,HTN,GERD. Current Medications: Active Medications Generic Name Dose Route Start Last Admin Trade Name Freq PRN Reason Stop Dose Admin Acetaminophen 650 mg 03/16/18 12:30 03/24/18 13:32 Tylenol - PO 650 mg Q4H PRN Administration FEVER Al Hydroxide/Mg Hydroxide 30 ml 03/16/18 12:30 Mylanta Oral Suspension - PO Q6H PRN DYSPEPSIA Eucalyptus/Menthol/Phenol/Sorbitol 1 each 03/16/18 12:30 Cepastat Lozenge - MM Q4H PRN SORE THROAT Guaifenesin 10 ml 03/16/18 12:30 Robitussin Dm - PO Q6H PRN COUGH Hydrochlorothiazide 25 mg 03/17/18 06:00 04/14/18 06:05 Hctz - PO 25 mg DAILY@0600 [facility] Administration Hydroxyzine Pamoate 25 mg 03/18/18 10:53 03/19/18 10:23 Vistaril - PO 25 mg Q4H PRN Administration ANXIETY Loperamide HCl 4 mg 03/16/18 12:30 Imodium - PO Q6H PRN DIARRHEA Magnesium Citrate 300 ml 03/16/18 12:30 Citroma - PO Q48H PRN CONSTIPATION Magnesium Hydroxide 30 ml 03/16/18 12:30 Milk Of Magnesia - PO DAILY PRN CONSTIPATION Melatonin 5 mg 03/16/18 22:00 03/25/18 22:06 Melatonin PO 5 mg HS PRN Administration INSOMNIA Metoprolol Tartrate 50 mg 03/16/18 18:00 04/14/18 07:41 Lopressor - PO 50 mg BID@0600,1800 [facility] Administration Nicotine 14 mg 03/16/18 12:30 Nicoderm Patch - TD DAILY PRN WITHDRAWAL(CONT SUBST) Nicotine Polacrilex 2 mg 03/16/18 12:30 Nicorette Gum - BUC Q2H PRN NICOTINE REPLACEMENT RX Multivit/Folic Acid/Iron 1 tab 03/17/18 10:00 04/13/18 10:09 Vitamins (Sjr) - PO 1 tab DAILY NINA Administration Pseudoephedrine/Triprolidine 1 combo 03/16/18 12:30 Actifed - PO TID PRN NASAL CONGESTION Ranitidine HCl 150 mg 03/16/18 22:00 04/13/18 21:16 Zantac - PO 150 mg BID NINA Administration Risperidone 1 mg 03/17/18 10:00 04/13/18 10:09 Risperdal - PO 1 mg DAILY NINA Administration Thiamine HCl 100 mg 03/16/18 22:00 04/13/18 21:16 Vitamin B1 - PO 100 mg HS NINA Administration Current Side Effect: No Lab tests ordered: No Lab tests reviewed: Yes Provider note:: Patient completed this program today.She has met her treatment goals and will continue to address her issues on outpatient basis .Patient continues to find that current medications help to cope with mood instability, insomnia,anxiety.Script for Risperdal 1 mg po hs one month supply provided. Supportive therapy provided. Patient is stable for discharge today. Total face to face time:: 30 Psychiatric Treatment Plan - Problem List (1) Alcohol dependence Comment: . (3) Cocaine dependence Qualifiers: Substance use status: uncomplicated Qualified Code(s): F14.20 - Cocaine dependence, uncomplicated Comment: . (4) Eczema Qualifiers: Eczema type: unspecified Qualified Code(s): L30.9 - Dermatitis, unspecified Comment: . (5) Essential hypertension Comment: . (6) G6PD deficiency Comment: . (7) Hypercholesterolemia Comment: . (8) Nicotine dependence Qualifiers: Nicotine product type: cigarettes Substance use status: in withdrawal Qualified Code(s): F17.213 - Nicotine dependence, cigarettes, with withdrawal Comment: .
[2018-04-14 09:22] VITALS: BP 97/64; PULSE 62
== END 2018-04-14 08:55 | disposition home or self-care (01) | DRG 772 ==
LOC: Y3E 11:50
PROVIDERS: ADMIT Psychiatry & Neurology Psychiatry; ATTEND Psychiatry & Neurology Psychiatry
PROC: HZ42ZZZ Group Counseling for Substance Abuse Treatment, Cognitive-Behavioral (ICD-10-PCS; principal; 2018-03-16)
DX: F10.20 Alcohol dependence, uncomplicated (principal); F14.20 Cocaine dependence, uncomplicated; F12.20 Cannabis dependence, uncomplicated; F17.213 Nicotine dependence, cigarettes, with withdrawal; F31.9 Bipolar disorder, unspecified; I10 Essential (primary) hypertension; L30.9 Dermatitis, unspecified; E78.5 Hyperlipidemia, unspecified; Z87.898 Personal history of other specified conditions; Z59.0 Homelessness
CPT/HCPCS: J2794

== ENCOUNTER 2018-12-09 21:16 | Inpatient (IN) | payer OTHER ==
--- NOTE | 2018-12-10 01:27 | HP ---
"CIWA Score Nausea/Vomitin-No Nausea/No Vomiting Muscle Tremors: 4-Moderate,w/Arms Extend Anxiety: 4-Mod. Anxious/Guarded Agitation: 1-Slight > Activity Paroxysmal Sweats: 3 (Increased facial moisture) Orientation: 0-Oriented Tacttile Disturbances: 0-None Auditory Disturbances: 0-None Visual Disturbances: 0-None Headache: 0-None Present CIWA-Ar Total Score: 12 - Admission Criteria OASAS Guidelines: Admission for Medically Managed Detox: Requires at least one of the followin. CIWA greater than 12 2. Seizures within the past 24 hours 3. Delirium tremens within the past 24 hours 4. Hallucinations within the past 24 hours 5. Acute intervention needed for co occurring medical disorder 6. Acute intervention needed for co occurring psychiatric disorder 7. Severe withdrawal that cannot be handled at a lower level of care (continued vomiting, continued diarrhea, abnormal vital signs) requiring intravenous medication and/or fluids 8. Patient presents the following: CIWA greater than 12 Admission Criteria Met: Admission criteria met Admission ROS [facility] Chief Complaint: Here with alcohol withdrawal. Allergies/Adverse Reactions: Allergies Allergy/AdvReac Type Severity Reaction Status Date / Time aspirin Allergy Intermediate Verified 04/03/18 18:01 lactose AdvReac Severe LACTOSE Verified 03/12/18 16:06 INTOLERANCE Lactose-Intolerance AdvReac Severe Uncoded 03/12/18 14:40 History of Present Illness: Here for alcohol detox. I also need help w/ crack/cocaine. Crack/cocaine use began at age 18. Alcohol use began at age 15. Marijuana use began at age 12. Nicotine use began at age 12. Hx; blackouts (2014); overdose w/ crack/cocaine 2016 Denies seizures. Longest period of sobriety 6 years PMHx: HTN, High Cholesterol, arthritis legs, MHHx: Depression, bipolar disorder. Denies thoughts of harming self or others. Last saw Provider 1 week ago. Search Terms: Indigo Pacheco, 1965 Search Date: 12/10/2018 01:22:34 AM The Drug Utilization Report below displays all of the controlled substance prescriptions, if any, that your patient has filled in the last twelve months. The information displayed on this report is compiled from pharmacy submissions to the Department, and accurately reflects the information as submitted by the pharmacies. This report was requested by: Corazon Ni | Reference #: [id number] There are no results for the search terms that you entered. Exam Limitations: No Limitations - Ebola screening Have you traveled outside of the country in the last 21 days: No (N) Have you had contact with anyone from an Ebola affected area: No Have you been sick,other than usual withdrawal symptoms: No (No measle exposure) Do you have a fever: No - Review of Systems Constitutional: Chills EENT: reports: No Symptoms Reported, Blurred Vision, Nose Congestion, Dental Problems (Missing teeth. Chews and swallows okay.) Respiratory: reports: Cough (Cough x 2 days), SOB with Exertion Cardiac: reports: Other (Hx murmur) GI: reports: Indigestion (heart burn/acid reflux) : reports: No Symptoms Reported Musculoskeletal: reports: Joint Pain (Knees and ankle pain 'pins & needles' r/ t arthritis. Increases w/ walking, rain. Improves w/ medication, resting) Integumentary: reports: No Symptoms Reported Neuro: reports: Tremors Endocrine: reports: No Symptoms Reported Hematology: reports: No Symptoms Reported Psychiatric: reports: Judgement Intact, Orientated x3, Agitated, Anxious, Depressed Patient History - Patient Medical History Hx Anemia: No Hx Asthma: No Hx Chronic Obstructive Pulmonary Disease (COPD): No Hx Cancer: No Hx Cardiac Disorders: Yes (Heart murmur) Hx Congestive Heart Failure: No (hjeart murmur ) Hx Hypertension: No Hx Hypercholesterolemia: Yes (on med) Hx Pacemaker: No HX Cerebrovascular Accident: No Hx Seizures: No Hx Dementia: No Hx Diabetes: No Hx Gastrointestinal Disorders: Yes (Acid reflux) Hx Liver Disease: No Hx Genitourinary Disorders: No Hx Sexually Transmitted Disorders: No Hx Renal Disease (ESRD): No Hx Thyroid Disease: No Hx Human Immunodeficiency Virus (HIV): No (last 02/10 negative) Hx Hepatitis C: No Hx Depression: Yes Hx Suicide Attempt: No Hx Bipolar Disorder: Yes (non compliance) Hx Schizophrenia: No - Patient Surgical History Past Surgical History: No Hx Neurologic Surgery: No Hx Cataract Extraction: No Hx Cardiac Surgery: No Hx Lung Surgery: No Hx Breast Surgery: No Hx Breast Biopsy: No Hx Abdominal Surgery: No Hx Appendectomy: No Hx Cholecystectomy: No Hx Genitourinary Surgery: No Hx Section: No Hx Orthopedic Surgery: No Anesthesia Reaction: No - Reproductive History Last Menstrual Period: 11/05/08 - Smoking Cessation Smoking history: Current every day smoker Have you smoked in the past 12 months: Yes Aproximately how many cigarettes per day: 30 Hx Chewing Tobacco Use: No Initiated information on smoking cessation: Yes 'Breaking Loose' booklet given: 12/09/18 - Substance & Tx. History Hx Alcohol Use: Yes Hx Substance Use: Yes Substance Use Type: Alcohol, Cocaine, Marijuana Hx Substance Use Treatment: Yes (detox, rehab, long-term) - Substances abused Crack Substance route: Smoking Family Disease History - Family Disease History Family Disease History: Other: Father (alcohol,), Mother () Admission Physical Exam [facility] - Physical General Appearance: Yes: Nourished, Appropriately Dressed, Mild Distress, Tremorous, Sweating (Increased facial moisture) HEENTM: Yes: Normocephalic, Normal Voice, ARMINDA, Pharynx Normal (No lesions), Other (Dry ;lips, thickened saliva) Respiratory: Yes: Lungs Clear, Normal Breath Sounds, No Accessory Muscle Use, Other (Cough produvtive of thick yellowish/tannish phlegm) Neck: Yes: No masses,lesions,Nodules, Supple Breast: Yes: Breast Exam Deferred Cardiology: Yes: Regular Rhythm, Regular Rate, S1, S2, Murmur Abdominal: Yes: Non Tender, Soft, Increased Bowel Sounds Genitourinary: Yes: Within Normal Limits Back: Yes: Within Normal Limits Musculoskeletal: Yes: full range of Motion, Other (Crepitus (R) knee. FROM/FWB/ Non-tender) Extremities: Yes: Normal Capillary Refill, Normal Range of Motion, Tremors Neurological: Yes: pets salesperson II-XII NML intact, Fully Oriented, Alert, Motor Strength 5/5 Integumentary: Yes: Normal Color, Dry (Dry lips, mucous membranes and decreased skin turgor), Warm, Diaphoresis (Increased facial moisture), Other (Elogagted toe nail (L) second toe, with tenderness at tip) Lymphatic: Yes: Within Normal Limits - Diagnostic (1) Alcohol dependence with withdrawal Current Visit: Yes Status: Acute Qualifiers: Complication of substance-induced condition: uncomplicated Qualified Code(s ): F10.230 - Alcohol dependence with withdrawal, uncomplicated (2) Dehydration Current Visit: Yes Status: Acute (3) Cannabis dependence Current Visit: Yes Status: Chronic Comment: . (4) Cocaine dependence Current Visit: Yes Status: Chronic Qualifiers: Substance use status: uncomplicated Qualified Code(s): F14.20 - Cocaine dependence, uncomplicated Comment: . (5) Essential hypertension Current Visit: Yes Status: Chronic Comment: . (6) Nicotine dependence Current Visit: Yes Status: Chronic Qualifiers: Nicotine product type: cigarettes Substance use status: in withdrawal Qualified Code(s): F17.213 - Nicotine dependence, cigarettes, with withdrawal Comment: . (7) Toenail deformity Current Visit: Yes Status: Chronic (8) Toenail fungus Current Visit: Yes Status: Chronic Cleared for Admission S - Detox or Rehab S Level of Care: Medically Managed Detox Regimen/Protocol: Librium Inpatient Rehab Admission - Rehab Decision to Admit Inpatient rehab admission?: No"
[2018-12-10] MEDS ORDERED: METHOCARBAMOL 500 MG TABLET PO PRN (01:59)
[2018-12-10] MEDS ORDERED: MENTHOL/PHENOL 1 EACH UD MM PRN (01:59)
[2018-12-10] MEDS ORDERED: MELATONIN 5 MG TABLETS PO PRN (01:59)
[2018-12-10] MEDS ORDERED: MAGNESIUM CITRATE 300 ML BOTTLE PO PRN (01:59)
[2018-12-10] MEDS ORDERED: MAGNESIUM HYDROX 2400MG/30ML ORAL SUSPENSION 30 ML CUP PO PRN (01:59)
[2018-12-10] MEDS ORDERED: MAG HYDROX/AL HYDROX/SIMETH 30 ML UNIT-DOSE CUP PO PRN (01:59)
[2018-12-10] MEDS ORDERED: NICOTINE POLACRILEX 2 MG GUM BUC PRN (01:59)
[2018-12-10] MEDS ORDERED: ACETAMINOPHEN 325 MG TABLET (FP) PO PRN ×2 (01:59)
[2018-12-10] MEDS ORDERED: chlordiazePOXIDE HCL 25 MG CAPSULE PO ONE (01:59)
[2018-12-10] MEDS ORDERED: chlordiazePOXIDE HCL 10 MG CAPSULE PO PRN (01:59)
[2018-12-10] MEDS ORDERED: IBUPROFEN 400 MG TABLET (FP) PO PRN (02:03)
[2018-12-10] MEDS: guaiFENesin 200 MG/10 ML 10 ML UNIT-DOSE CUPS PO SCH ×3 (03:56→17:37)
[2018-12-10] MEDS: chlordiazePOXIDE HCL 25 MG CAPSULE PO SCH ×3 (07:05→22:04)
[2018-12-10] MEDS: PRENATAL VITAMINS W/ FOLIC ACID TABLET (FP) PO SCH (10:41)
[2018-12-10] MEDS: NICOTINE 21 MG/24 HOURS TOPICAL PATCH TD SCH (10:41)
[2018-12-10] MEDS ORDERED: METOPROLOL TARTRATE 50 MG TABLET (FP) PO ONE (12:00)
[2018-12-10] MEDS: HYDROCHLOROTHIAZIDE 25 MG TABLET (FP) PO SCH (12:09)
--- NOTE | 2018-12-10 12:20 | PN ---
S CIWA - CIWA Score Nausea/Vomitin-No Nausea/No Vomiting Muscle Tremors: 3 Anxiety: 3 Agitation: 4-Moderately Restless Paroxysmal Sweats: 3 Orientation: 0-Oriented Tacttile Disturbances: 0-None Auditory Disturbances: 0-None Visual Disturbances: 0-None Headache: 0-None Present CIWA-Ar Total Score: 13 [facility] Progress Note (SOAP) Subjective: muscle aches/spasms body aches sweats shakes interrupted sleep anxiety Objective: 12/10/18 12:19 Vital Signs Temperature 99.1 F 12/10/18 09:41 Pulse Rate 90 12/10/18 09:41 Respiratory Rate 20 12/10/18 09:41 Blood Pressure 141/88 12/10/18 09:41 O2 Sat by Pulse Oximetry (%) labs pending aaox3 ambulating no acute distress Assessment: 12/10/18 12:20 withdrawal sx Plan: continue detox increase fluids baclofen 10mg tid motrin 600mg prn
--- NOTE | 2018-12-10 12:24 | EKG ---
Test Reason : Blood Pressure : / mmHG Vent. Rate : 088 BPM Atrial Rate : 088 BPM P-R Int : 130 ms QRS Dur : 084 ms QT Int : 342 ms P-R-T Axes : 067 068 -13 degrees QTc Int : 413 ms NORMAL SINUS RHYTHM T WAVE ABNORMALITY, CONSIDER INFERIOR ISCHEMIA ABNORMAL ECG WHEN COMPARED WITH ECG OF 12-MAR-2018 17:13, T WAVE INVERSION NOW EVIDENT IN INFERIOR LEADS Confirmed by ANN-MARIE RANDALL, VIVEK ([id number]) on 12/10/2018 12:23:58 PM Referred By: Confirmed By:VIVEK JACOBSEN MD
[2018-12-10 12:56] LABS: ALBUMIN 3.7 g/dl (3.4-5.0); ALK PHOS 52 U/L (45-117); ANION GAP 6 MMOL/L (8-16); BILIRUBIN,TOTAL 0.5 mg/dL (0.2-1); BLOOD UREA NITROGEN 16 mg/dL (7-18); CALCIUM 9.7 mg/dL (8.5-10.1); CHLORIDE 107 mmol/L (98-107); CO2 30 mmol/L (21-32); CREATININE 0.9 mg/dL (0.55-1.3); GLUCOSE,RANDOM 106 mg/dL (74-106); POTASSIUM 3.4 mmol/L (3.5-5.1); SGOT/AST 65 U/L (15-37); SGPT/ALT 43 U/L (13-61); SODIUM 143 mmol/L (136-145); TOT PROT 7.2 g/dl (6.4-8.2)
[2018-12-10 13:31] LABS: HEMATOCRIT 38.1 % (32.4-45.2); HEMOGLOBIN 13.1 GM/dL (10.7-15.3); MCH 31.7 pg (25.7-33.7); MCHC 34.4 g/dl (32.0-36.0); MEAN CELL VOLUME 92.2 fl (80-96); MEAN PLT VOLUME 9.7 fl (7.5-11.1); PLATELET COUNT 262 K/MM3 (134-434); RBC 4.14 M/mm3 (3.60-5.2); RDW 13.6 % (11.6-15.6); WHITE BLOOD COUNT 7.5 K/mm3 (4.0-10.0)
[2018-12-10] MEDS: NAPROXEN 500 MG TABLET (FP) PO SCH ×2 (14:18→22:04)
[2018-12-10] MEDS: BACLOFEN 10 MG TABLET (FP) PO SCH ×2 (14:18→22:04)
[2018-12-10] MEDS: METOPROLOL TARTRATE 50 MG TABLET (FP) PO SCH (17:37)
[2018-12-10] MEDS: THIAMINE HCL 100 MG TABLET (FP) PO SCH (22:04)
[2018-12-11] MEDS: chlordiazePOXIDE 5 MG CAPSULE PO SCH ×3 (06:25→22:11)
[2018-12-11] MEDS: BACLOFEN 10 MG TABLET (FP) PO SCH ×3 (06:25→22:12)
[2018-12-11] MEDS: HYDROCHLOROTHIAZIDE 25 MG TABLET (FP) PO SCH (06:25)
[2018-12-11] MEDS: METOPROLOL TARTRATE 50 MG TABLET (FP) PO SCH ×2 (06:25→17:31)
[2018-12-11] MEDS: guaiFENesin 200 MG/10 ML 10 ML UNIT-DOSE CUPS PO SCH ×3 (06:27→17:31)
[2018-12-11] MEDS: PRENATAL VITAMINS W/ FOLIC ACID TABLET (FP) PO SCH (11:10)
[2018-12-11] MEDS: POTASSIUM CHLORIDE TABS 20 MEQ TABLET.ER (FP) PO SCH (11:10)
[2018-12-11] MEDS: PANTOPRAZOLE 20 MG TABLET (FP) PO SCH (11:10)
[2018-12-11] MEDS: NAPROXEN 500 MG TABLET (FP) PO SCH ×2 (11:10→22:11)
[2018-12-11] MEDS: NICOTINE 21 MG/24 HOURS TOPICAL PATCH TD SCH (11:10)
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
--- NOTE | 2018-12-11 13:01 | PN ---
S CIWA - CIWA Score Nausea/Vomitin-No Nausea/No Vomiting Muscle Tremors: 3 Anxiety: 2 Agitation: 3 Paroxysmal Sweats: 2 Orientation: 0-Oriented Tacttile Disturbances: 0-None Auditory Disturbances: 0-None Visual Disturbances: 0-None Headache: 0-None Present CIWA-Ar Total Score: 10 BHS Progress Note (SOAP) Subjective: sweats tired interrupted sleep body aches Objective: 12/11/18 13:00 Vital Signs Temperature 98.0 F 12/11/18 10:55 Pulse Rate 62 12/11/18 10:55 Respiratory Rate 18 12/11/18 10:55 Blood Pressure 112/74 12/11/18 10:55 O2 Sat by Pulse Oximetry (%) Laboratory Tests 12/10/18 12/10/18 12/10/18 07:00 07:00 07:00 WBC 7.5 RBC 4.14 Hgb 13.1 Hct 38.1 MCV 92.2 MCH 31.7 MCHC 34.4 RDW 13.6 Plt Count 262 MPV 9.7 Sodium 143 Potassium 3.4 L Chloride 107 Carbon Dioxide 30 Anion Gap 6 L BUN 16 Creatinine 0.9 Creat Clearance w eGFR 65.25 Random Glucose 106 Calcium 9.7 Total Bilirubin 0.5 AST 65 H ALT 43 Alkaline Phosphatase 52 Total Protein 7.2 Albumin 3.7 RPR Titer Nonreactive aaox3 ambulating no acute distress pt is currently getting kdur for hypokalemia; repeat lab order for potassium d/c kdur if repeat potassium is wnl Assessment: 12/11/18 13:07 withdrawal sx Plan: continue detox f/u pending repeated potassium order
[2018-12-11] MEDS: busPIRone HCL 5 MG TABLET PO SCH ×2 (14:21→22:12)
[2018-12-11] MEDS: risperiDONE 1 MG TABLET (FP) PO SCH (14:21)
[2018-12-11] MEDS: THIAMINE HCL 100 MG TABLET (FP) PO SCH (22:10)
[2018-12-12] MEDS ORDERED: chlordiazePOXIDE HCL 10 MG CAPSULE PO PRN (05:00)
[2018-12-12] MEDS: METOPROLOL TARTRATE 50 MG TABLET (FP) PO SCH ×2 (06:08→22:20)
[2018-12-12] MEDS: BACLOFEN 10 MG TABLET (FP) PO SCH ×3 (06:08→22:19)
[2018-12-12] MEDS: HYDROCHLOROTHIAZIDE 25 MG TABLET (FP) PO SCH (06:08)
[2018-12-12] MEDS: chlordiazePOXIDE HCL 10 MG CAPSULE PO SCH ×3 (06:09→22:20)
[2018-12-12] MEDS: PANTOPRAZOLE 20 MG TABLET (FP) PO SCH (11:52)
[2018-12-12] MEDS: POTASSIUM CHLORIDE TABS 20 MEQ TABLET.ER (FP) PO SCH (11:52)
[2018-12-12] MEDS: PRENATAL VITAMINS W/ FOLIC ACID TABLET (FP) PO SCH (11:52)
[2018-12-12] MEDS: NAPROXEN 500 MG TABLET (FP) PO SCH ×2 (11:52→22:20)
[2018-12-12] MEDS: risperiDONE 1 MG TABLET (FP) PO SCH (11:52)
[2018-12-12] MEDS: busPIRone HCL 5 MG TABLET PO SCH ×2 (11:53→22:20)
[2018-12-12] MEDS: NICOTINE 21 MG/24 HOURS TOPICAL PATCH TD SCH (11:53)
--- NOTE | 2018-12-12 13:31 | PN ---
[facility] Progress Note Note: Vital Signs Temperature 96.3 F L 12/12/18 11:40 Pulse Rate 63 12/12/18 11:40 Respiratory Rate 16 12/12/18 11:40 Blood Pressure 119/74 12/12/18 11:40 O2 Sat by Pulse Oximetry (%) Laboratory Last Values WBC 7.5 K/mm3 (4.0-10.0) 12/10/18 07:00 RBC 4.14 M/mm3 (3.60-5.2) 12/10/18 07:00 Hgb 13.1 GM/dL (10.7-15.3) 12/10/18 07:00 Hct 38.1 % (32.4-45.2) 12/10/18 07:00 MCV 92.2 fl (80-96) 12/10/18 07:00 MCH 31.7 pg (25.7-33.7) 12/10/18 07:00 MCHC 34.4 g/dl (32.0-36.0) 12/10/18 07:00 RDW 13.6 % (11.6-15.6) 12/10/18 07:00 Plt Count 262 K/MM3 (134-434) 12/10/18 07:00 MPV 9.7 fl (7.5-11.1) 12/10/18 07:00 Sodium 143 mmol/L (136-145) 12/10/18 07:00 Potassium 3.8 mmol/L (3.5-5.1) 12/12/18 07:00 Chloride 107 mmol/L (98-107) 12/10/18 07:00 Carbon Dioxide 30 mmol/L (21-32) 12/10/18 07:00 Anion Gap 6 MMOL/L (8-16) L 12/10/18 07:00 BUN 16 mg/dL (7-18) 12/10/18 07:00 Creatinine 0.9 mg/dL (0.55-1.3) 12/10/18 07:00 Creat Clearance w eGFR 65.25 (>60) 12/10/18 07:00 Random Glucose 106 mg/dL (74-106) 12/10/18 07:00 Calcium 9.7 mg/dL (8.5-10.1) 12/10/18 07:00 Total Bilirubin 0.5 mg/dL (0.2-1) 12/10/18 07:00 AST 65 U/L (15-37) H 12/10/18 07:00 ALT 43 U/L (13-61) 12/10/18 07:00 Alkaline Phosphatase 52 U/L (45-117) 12/10/18 07:00 Total Protein 7.2 g/dl (6.4-8.2) 12/10/18 07:00 Albumin 3.7 g/dl (3.4-5.0) 12/10/18 07:00 RPR Titer Nonreactive (NONREACTIVE) 12/10/18 07:00 interrupted, sleep fatigue AOX3 no acute distress, ambulating in the unit alcohol withdrawal sx labs noted : Elevated AST d/c acetaminophen Increase PO fluids continue to monitor Patient to follow up with primary care provider upon discharge
[2018-12-12] MEDS: THIAMINE HCL 100 MG TABLET (FP) PO SCH (22:21)
[2018-12-13] MEDS: BACLOFEN 10 MG TABLET (FP) PO SCH (05:27)
[2018-12-13] MEDS: HYDROCHLOROTHIAZIDE 25 MG TABLET (FP) PO SCH (05:27)
[2018-12-13] MEDS: chlordiazePOXIDE HCL 10 MG CAPSULE PO SCH (05:27)
[2018-12-13] MEDS: METOPROLOL TARTRATE 50 MG TABLET (FP) PO SCH (05:27)
[2018-12-13] MEDS: POTASSIUM CHLORIDE TABS 20 MEQ TABLET.ER (FP) PO SCH (10:17)
[2018-12-13] MEDS: risperiDONE 1 MG TABLET (FP) PO SCH (10:17)
[2018-12-13] MEDS: NAPROXEN 500 MG TABLET (FP) PO SCH (10:17)
[2018-12-13] MEDS: NICOTINE 21 MG/24 HOURS TOPICAL PATCH TD SCH (10:18)
[2018-12-13] MEDS: PANTOPRAZOLE 20 MG TABLET (FP) PO SCH (10:18)
[2018-12-13] MEDS: PRENATAL VITAMINS W/ FOLIC ACID TABLET (FP) PO SCH (10:18)
[2018-12-13 10:27] VITALS: BP 137/86; PULSE 58; TEMP 98.6
[2018-12-13] MEDS: busPIRone HCL 5 MG TABLET PO SCH (11:15)
--- NOTE | 2018-12-13 12:21 | DS ---
[facility] Detox Discharge Summary Admission Date: 12/10/18 Discharge Date: 12/13/18 - History Present History: Alcohol Dependence, Cannabis Dependence, Cocaine Dependence Additional Comments: Pt is discharged to [facility] for continued care. Detox protocol completed. Pt is medically stable to be discharged. Pertinent Past History: H/O HTN, dyslipidemia, seizures, arthritis of legs, depression, and bipolar, alcohol abuse, cannabis and cocaine abuse. - Physical Exam Results Vital Signs: Vital Signs Temperature 98.6 F 12/13/18 10:17 Pulse Rate 58 L 12/13/18 10:17 Respiratory Rate 18 12/13/18 10:17 Blood Pressure 137/86 12/13/18 10:17 O2 Sat by Pulse Oximetry (%) Laboratory Last Values WBC 7.5 K/mm3 (4.0-10.0) 12/10/18 07:00 RBC 4.14 M/mm3 (3.60-5.2) 12/10/18 07:00 Hgb 13.1 GM/dL (10.7-15.3) 12/10/18 07:00 Hct 38.1 % (32.4-45.2) 12/10/18 07:00 MCV 92.2 fl (80-96) 12/10/18 07:00 MCH 31.7 pg (25.7-33.7) 12/10/18 07:00 MCHC 34.4 g/dl (32.0-36.0) 12/10/18 07:00 RDW 13.6 % (11.6-15.6) 12/10/18 07:00 Plt Count 262 K/MM3 (134-434) 12/10/18 07:00 MPV 9.7 fl (7.5-11.1) 12/10/18 07:00 Sodium 143 mmol/L (136-145) 12/10/18 07:00 Potassium 3.8 mmol/L (3.5-5.1) 12/12/18 07:00 Chloride 107 mmol/L (98-107) 12/10/18 07:00 Carbon Dioxide 30 mmol/L (21-32) 12/10/18 07:00 Anion Gap 6 MMOL/L (8-16) L 12/10/18 07:00 BUN 16 mg/dL (7-18) 12/10/18 07:00 Creatinine 0.9 mg/dL (0.55-1.3) 12/10/18 07:00 Creat Clearance w eGFR 65.25 (>60) 12/10/18 07:00 Random Glucose 106 mg/dL (74-106) 12/10/18 07:00 Calcium 9.7 mg/dL (8.5-10.1) 12/10/18 07:00 Total Bilirubin 0.5 mg/dL (0.2-1) 12/10/18 07:00 AST 65 U/L (15-37) H 12/10/18 07:00 ALT 43 U/L (13-61) 12/10/18 07:00 Alkaline Phosphatase 52 U/L (45-117) 12/10/18 07:00 Total Protein 7.2 g/dl (6.4-8.2) 12/10/18 07:00 Albumin 3.7 g/dl (3.4-5.0) 12/10/18 07:00 RPR Titer Nonreactive (NONREACTIVE) 12/10/18 07:00 Labs reviewed Pertinent Admission Physical Exam Findings: withdrawal symptoms - Treatment Hospital Course: Detox Protocol Followed, Detoxed Safely, Responded well, Discharged Condition Good, Rehab Referral Accepted Patient has Accepted a Rehab Referral to: [facility] - Medication Discharge Medications: Ambulatory Orders Pantoprazole Sodium [Protonix] 20 mg PO DAILY #30 tablet. 12/09/17 Risperidone [Risperdal -] 1 mg PO DAILY #30 tablet 03/13/18 Hydrochlorothiazide [Hctz -] 25 mg PO DAILY@0600 #30 tablet 04/13/18 Metoprolol Tartrate [Lopressor -] 50 mg PO BID@0600,1800 #60 tablet 04/13/18 Naproxen [Naprosyn -] 500 mg PO BID PRN #20 tablet 04/13/18 Ranitidine [Zantac -] 150 mg PO BID #60 tablet 04/13/18 - Diagnosis (1) Alcohol dependence with withdrawal Current Visit: Yes Status: Acute Qualifiers: Complication of substance-induced condition: uncomplicated Qualified Code(s ): F10.230 - Alcohol dependence with withdrawal, uncomplicated (2) Cannabis dependence Current Visit: Yes Status: Acute (3) Cocaine dependence Current Visit: Yes Status: Acute Qualifiers: Substance use status: uncomplicated Qualified Code(s): F14.20 - Cocaine dependence, uncomplicated (4) Arthritis Current Visit: Yes Status: Chronic (5) Essential hypertension Current Visit: Yes Status: Chronic (6) HLD (hyperlipidemia) Current Visit: Yes Status: Chronic Qualifiers: Hyperlipidemia type: unspecified Qualified Code(s): E78.5 - Hyperlipidemia , unspecified (7) Schizoaffective disorder Current Visit: Yes Status: Chronic Qualifiers: Schizoaffective disorder type: unspecified Qualified Code(s): F25.9 - Schizoaffective disorder, unspecified (8) Bipolar disorder Current Visit: No Status: Ruled-out - AMA Did Patient Leave Against Medical Advice: No
== END 2018-12-13 12:16 | disposition other institution (70) | DRG 774 ==
LOC: YASAS 21:16 → Y6N 12-10 01:51
PROVIDERS: ADMIT Surgery; ATTEND Surgery
PROC: HZ2ZZZZ Detoxification Services for Substance Abuse Treatment (ICD-10-PCS; principal; 2018-12-10)
DX: F10.230 Alcohol dependence with withdrawal, uncomplicated (principal); F14.20 Cocaine dependence, uncomplicated; F12.20 Cannabis dependence, uncomplicated; F17.213 Nicotine dependence, cigarettes, with withdrawal; F19.24 Other psychoactive substance dependence with psychoactive substance-induced mood disorder; F25.9 Schizoaffective disorder, unspecified; F31.9 Bipolar disorder, unspecified; F43.10 Post-traumatic stress disorder, unspecified; I10 Essential (primary) hypertension; M19.90 Unspecified osteoarthritis, unspecified site; E78.5 Hyperlipidemia, unspecified; L30.9 Dermatitis, unspecified; D55.0 Anemia due to glucose-6-phosphate dehydrogenase [G6PD] deficiency; B35.1 Tinea unguium; K21.9 Gastro-esophageal reflux disease without esophagitis; R01.1 Cardiac murmur, unspecified; Z88.6 Allergy status to analgesic agent; Z91.011 Allergy to milk products; Z91.14 Patient's other noncompliance with medication regimen
CPT/HCPCS: 36415; 80053; 84132; 85027; 86593; 93005; 93010; J0475; J2794

== ENCOUNTER 2018-12-13 11:38 | Inpatient (IN) | payer OTHER ==
--- NOTE | 2018-12-13 13:01 | HP ---
[facility] Rehab Assess/Revision - Admission History Admitted to Rehab from: [facility] Date of Admission to Rehab: 12/13/2018 - Vital signs Vital Signs: Noted and stable - Findings Detox History & Physical reviewed: Yes Concur with findings: Yes Comments/Additional Findings: Pt is medically stable for discharge to rehab. Inpatient Rehab Admission - Rehab Decision to Admit Inpatient rehab admission?: Yes - Initial Determination Are CD services needed?: Yes Free of communicable disease: Yes Not in need of hospitalization: Yes - Rehab Admission Criteria Previous failed treatment: Yes Poor recovery environment: Yes Comorbidities: Yes Lacks judgement: No Patient is meeting Inpatient Rehab admission criteria:: Yes
[2018-12-13] MEDS ORDERED: MAGNESIUM HYDROX 2400MG/30ML ORAL SUSPENSION 30 ML CUP PO PRN (13:10)
[2018-12-13] MEDS ORDERED: P-EPHED 60MG/TRIPROLIDI 2.5MG TABLET PO PRN (13:10)
[2018-12-13] MEDS ORDERED: guaiFENesin 200 MG/10 ML 10 ML UNIT-DOSE CUPS PO PRN (13:10)
[2018-12-13] MEDS ORDERED: ACETAMINOPHEN 325 MG TABLET (FP) PO PRN (13:10)
[2018-12-13] MEDS ORDERED: MAG HYDROX/AL HYDROX/SIMETH 30 ML UNIT-DOSE CUP PO PRN (13:10)
[2018-12-13] MEDS ORDERED: MENTHOL/PHENOL 1 EACH UD MM PRN (13:10)
[2018-12-13] MEDS ORDERED: LOPERAMIDE HCL 2 MG CAPSULE PO PRN (13:10)
[2018-12-13] MEDS ORDERED: NICOTINE POLACRILEX 2 MG GUM BUC PRN (13:10)
[2018-12-13] MEDS: METOPROLOL TARTRATE 50 MG TABLET (FP) PO SCH (18:12)
[2018-12-13] MEDS ORDERED: THIAMINE HCL 100 MG TABLET (FP) PO SCH (22:00)
[2018-12-13] MEDS ORDERED: MELATONIN 5 MG TABLETS PO PRN (22:00)
[2018-12-14] MEDS ORDERED: HYDROCHLOROTHIAZIDE 25 MG TABLET (FP) PO SCH (06:00)
[2018-12-14] MEDS: METOPROLOL TARTRATE 50 MG TABLET (FP) PO SCH (06:43)
[2018-12-14 07:05] VITALS: TEMP 97.7
[2018-12-14 09:17] VITALS: BP 136/82; PULSE 56
[2018-12-14] MEDS ORDERED: NICOTINE 21 MG/24 HOURS TOPICAL PATCH TD SCH (10:00)
[2018-12-14] MEDS ORDERED: PRENATAL VITAMINS W/ FOLIC ACID TABLET (FP) PO SCH (10:00)
[2018-12-14] MEDS ORDERED: PANTOPRAZOLE 40 MG TABLET (FP) PO SCH (10:00)
--- NOTE | 2018-12-14 20:43 | PN ---
[facility] Progress Note Note: REHAB DISCHARGE - AMA Patient left AMA without waiting for Provider, stating I don't want rehab. Patient was a transfer from detox, where admitted and treated for alcohol use disorder. Patient had co-occurring nicotine, marijuana and crack/cocaine use disorder. PMHx: HTN, High Cholesterol, arthritis legs, MHHx: Depression, bipolar disorder. Denied thoughts of harming self or others. Vital Signs - 24 hr 12/14/18 12/14/18 12/14/18 00:30 03:30 07:03 Temperature 97.7 F Pulse Rate 89 Respiratory 18 18 16 Rate Blood Pressure 129/81 12/14/18 09:17 Temperature Pulse Rate 56 L Respiratory 18 Rate Blood Pressure 136/82 Laboratory Last Values HIV 1&2 Antibody Screen Negative 12/14/18 05:50 HIV P24 Antigen Negative 12/14/18 05:50 Labs reviewed. Patient left unit AMA.
== END 2018-12-14 12:06 | disposition home or self-care (01) | DRG 772 ==
LOC: YASAS 11:38 → Y3E 11:39
PROVIDERS: ADMIT Neuromusculoskeletal Medicine & OMM; ATTEND Neuromusculoskeletal Medicine & OMM
PROC: HZ42ZZZ Group Counseling for Substance Abuse Treatment, Cognitive-Behavioral (ICD-10-PCS; principal; 2018-12-13)
DX: F10.20 Alcohol dependence, uncomplicated (principal); F14.20 Cocaine dependence, uncomplicated; F12.20 Cannabis dependence, uncomplicated; F17.213 Nicotine dependence, cigarettes, with withdrawal; I10 Essential (primary) hypertension; B35.1 Tinea unguium; E86.0 Dehydration
CPT/HCPCS: 36415; 87389

== ENCOUNTER 2020-10-28 12:09 | Inpatient (IN) | payer OTHER ==
[2020-10-28 14:13] VITALS: BMI 22.6
[2020-10-28] MEDS ORDERED: METHOCARBAMOL 500 MG TABLET PO PRN (15:55)
[2020-10-28] MEDS ORDERED: BISMUTH SUBSALICYLATE 524 MG/30 ML UD PO PRN (15:55)
[2020-10-28] MEDS ORDERED: MAG HYDROX/AL HYDROX/SIMETH 30 ML UNIT-DOSE CUP PO PRN (15:55)
[2020-10-28] MEDS ORDERED: ACETAMINOPHEN 325 MG TABLET (FP) PO PRN ×2 (15:55)
[2020-10-28] MEDS ORDERED: MAGNESIUM HYDROX 2400MG/30ML ORAL SUSPENSION 30 ML CUP PO PRN (15:55)
[2020-10-28] MEDS ORDERED: MENTHOL/PHENOL 1 EACH UD MM PRN (15:55)
[2020-10-28] MEDS ORDERED: MAGNESIUM CITRATE 300 ML BOTTLE PO PRN (15:55)
[2020-10-28] MEDS ORDERED: IBUPROFEN 400 MG TABLET (FP) PO PRN (15:55)
[2020-10-28] MEDS ORDERED: NICOTINE POLACRILEX 2 MG GUM BUC PRN (15:55)
[2020-10-28] MEDS ORDERED: ONDANSETRON *ODT* 4 MG TABLET SL PRN (15:55)
[2020-10-28] MEDS ORDERED: NAPROXEN 500 MG TABLET PO PRN (15:58)
[2020-10-28] MEDS ORDERED: chlordiazePOXIDE HCL 25 MG CAPSULE PO PRN (18:17)
[2020-10-28] MEDS: hydrOXYzine PAMOATE 25 MG CAPSULE (FP) PO SCH ×2 (18:24→22:46)
[2020-10-28] MEDS: METOPROLOL TARTRATE 50 MG TABLET (FP) PO SCH (18:24)
[2020-10-28] MEDS ORDERED: chlordiazePOXIDE HCL 25 MG CAPSULE PO ONE (19:00)
[2020-10-28] MEDS: chlordiazePOXIDE HCL 25 MG CAPSULE PO SCH (22:45)
[2020-10-28] MEDS: THIAMINE HCL 100 MG TABLET (FP) PO SCH (22:45)
[2020-10-28] MEDS: MELATONIN 5 MG TABLETS PO SCH (22:46)
[2020-10-29] MEDS: chlordiazePOXIDE HCL 25 MG CAPSULE PO SCH ×5 (06:29→23:31)
[2020-10-29] MEDS: hydrOXYzine PAMOATE 25 MG CAPSULE (FP) PO SCH ×5 (06:30→23:39)
[2020-10-29] MEDS: METOPROLOL TARTRATE 50 MG TABLET (FP) PO SCH ×2 (06:30→18:08)
[2020-10-29] MEDS: HYDROCHLOROTHIAZIDE 25 MG TABLET (FP) PO SCH (06:30)
[2020-10-29] MEDS: PRENATAL VITAMINS W/ FOLIC ACID TABLET (FP) PO SCH (10:01)
[2020-10-29] MEDS: FLUOCINONIDE 0.05% CREAM (15 GM TUBE) TP SCH ×2 (10:01→23:39)
[2020-10-29] MEDS: PANTOPRAZOLE 20 MG TABLET PO SCH (10:01)
[2020-10-29] MEDS: NICOTINE 21 MG/24 HOURS TOPICAL PATCH TD SCH (10:01)
[2020-10-29 10:27] LABS: HEMATOCRIT 40.5 % (32.4-45.2); HEMOGLOBIN 13.5 GM/dL (10.7-15.3); MCH 31.7 pg (25.7-33.7); MCHC 33.3 g/dl (32.0-36.0); MEAN CELL VOLUME 95.4 fl (80-96); MEAN PLT VOLUME 10.1 fl (7.5-11.1); PLATELET COUNT 348 K/MM3 (134-434); RBC 4.24 M/mm3 (3.60-5.2); RDW 14.4 % (11.6-15.6); WHITE BLOOD COUNT 5.7 K/mm3 (4.0-10.0)
[2020-10-29 10:29] LABS: POTASSIUM 4.3 mmol/L (3.5-5.1)
[2020-10-29 10:35] LABS: ALBUMIN 2.9 g/dl (3.4-5.0); CALCIUM 9.2 mg/dL (8.5-10.1)
[2020-10-29 10:36] LABS: BLOOD UREA NITROGEN 8.9 mg/dL (7-18)
[2020-10-29 10:38] LABS: BILIRUBIN,TOTAL 0.3 mg/dL (0.2-1); TOT PROT 6.4 g/dl (6.4-8.2)
[2020-10-29 10:39] LABS: CREATININE 0.7 mg/dL (0.55-1.3)
[2020-10-29 11:29] LABS: HIV INTERPRETATION NEGATIVE (NEGATIVE)
[2020-10-29] MEDS: THIAMINE HCL 100 MG TABLET (FP) PO SCH (23:39)
[2020-10-29] MEDS: MELATONIN 5 MG TABLETS PO SCH (23:39)
[2020-10-30] MEDS: chlordiazePOXIDE HCL 25 MG CAPSULE PO SCH ×4 (06:23→22:33)
[2020-10-30] MEDS: METOPROLOL TARTRATE 50 MG TABLET (FP) PO SCH ×2 (06:24→17:41)
[2020-10-30] MEDS: HYDROCHLOROTHIAZIDE 25 MG TABLET (FP) PO SCH (06:24)
[2020-10-30] MEDS: hydrOXYzine PAMOATE 25 MG CAPSULE (FP) PO SCH ×5 (06:26→22:34)
[2020-10-30] MEDS: NICOTINE 21 MG/24 HOURS TOPICAL PATCH TD SCH (12:18)
[2020-10-30] MEDS: FLUOCINONIDE 0.05% CREAM (15 GM TUBE) TP SCH ×2 (12:18→22:34)
[2020-10-30] MEDS: PRENATAL VITAMINS W/ FOLIC ACID TABLET (FP) PO SCH (12:18)
[2020-10-30] MEDS: PANTOPRAZOLE 20 MG TABLET PO SCH (12:19)
[2020-10-30] MEDS: NIFEdipine E.R. 30 MG TABLET PO SCH (13:05)
[2020-10-30 19:12] LABS: PH,URINE 6.5 (5.0-8.0); URINE APPEARANCE CLEAR; URINE BILIRUBIN NEGATIVE (NEGATIVE); URINE COLOR YELLOW; URINE GLUCOSE (UA) NEGATIVE (NEGATIVE); URINE KETONE NEGATIVE (NEGATIVE); URINE LEUK ESTERASE NEGATIVE (NEGATIVE); URINE NITRITE NEGATIVE (NEGATIVE); URINE PROTEIN NEGATIVE (NEGATIVE)
[2020-10-30] MEDS: MELATONIN 5 MG TABLETS PO SCH (22:34)
[2020-10-30] MEDS: THIAMINE HCL 100 MG TABLET (FP) PO SCH (22:34)
[2020-10-31] MEDS ORDERED: chlordiazePOXIDE HCL 10 MG CAPSULE PO PRN
[2020-10-31] MEDS: HYDROCHLOROTHIAZIDE 25 MG TABLET (FP) PO SCH (06:41)
[2020-10-31] MEDS: hydrOXYzine PAMOATE 25 MG CAPSULE (FP) PO SCH ×5 (06:42→22:32)
[2020-10-31] MEDS: METOPROLOL TARTRATE 50 MG TABLET (FP) PO SCH ×2 (06:42→18:05)
[2020-10-31] MEDS: chlordiazePOXIDE HCL 10 MG CAPSULE PO SCH ×4 (06:44→22:33)
[2020-10-31] MEDS: PRENATAL VITAMINS W/ FOLIC ACID TABLET (FP) PO SCH (10:26)
[2020-10-31] MEDS: FLUOCINONIDE 0.05% CREAM (15 GM TUBE) TP SCH ×2 (10:26→22:35)
[2020-10-31] MEDS: NICOTINE 21 MG/24 HOURS TOPICAL PATCH TD SCH (10:27)
[2020-10-31] MEDS: PANTOPRAZOLE 20 MG TABLET PO SCH (10:27)
[2020-10-31] MEDS: NIFEdipine E.R. 30 MG TABLET PO SCH (11:57)
[2020-10-31] MEDS: THIAMINE HCL 100 MG TABLET (FP) PO SCH (22:32)
[2020-10-31] MEDS: MELATONIN 5 MG TABLETS PO SCH (22:32)
[2020-11-01] MEDS: hydrOXYzine PAMOATE 25 MG CAPSULE (FP) PO SCH ×5 (06:14→22:25)
[2020-11-01] MEDS: METOPROLOL TARTRATE 50 MG TABLET (FP) PO SCH ×2 (06:14→17:55)
[2020-11-01] MEDS: HYDROCHLOROTHIAZIDE 25 MG TABLET (FP) PO SCH (06:14)
[2020-11-01] MEDS: chlordiazePOXIDE HCL 10 MG CAPSULE PO SCH ×2 (06:15→17:54)
[2020-11-01] MEDS ORDERED: risperiDONE 1 MG TABLET PO SCH (10:00)
[2020-11-01] MEDS ORDERED: CITALOPRAM HYDROBROMIDE 10 MG TABLET PO SCH (10:00)
[2020-11-01] MEDS: busPIRone HCL 5 MG TABLET PO SCH ×2 (11:09→22:25)
[2020-11-01] MEDS: PRENATAL VITAMINS W/ FOLIC ACID TABLET (FP) PO SCH (11:10)
[2020-11-01] MEDS: PANTOPRAZOLE 20 MG TABLET PO SCH (11:10)
[2020-11-01] MEDS: NICOTINE 21 MG/24 HOURS TOPICAL PATCH TD SCH (11:10)
[2020-11-01] MEDS: NIFEdipine E.R. 30 MG TABLET PO SCH (11:10)
[2020-11-01] MEDS: FLUOCINONIDE 0.05% CREAM (15 GM TUBE) TP SCH ×2 (11:10→22:25)
[2020-11-01] MEDS: THIAMINE HCL 100 MG TABLET (FP) PO SCH (22:25)
[2020-11-01] MEDS: MELATONIN 5 MG TABLETS PO SCH (22:25)
[2020-11-02] MEDS ORDERED: chlordiazePOXIDE HCL 10 MG CAPSULE PO ONE (05:00)
[2020-11-02] MEDS: METOPROLOL TARTRATE 50 MG TABLET (FP) PO SCH (06:38)
[2020-11-02] MEDS: HYDROCHLOROTHIAZIDE 25 MG TABLET (FP) PO SCH (06:38)
[2020-11-02] MEDS: hydrOXYzine PAMOATE 25 MG CAPSULE (FP) PO SCH (06:38)
[2020-11-02 09:27] VITALS: BP 132/74; PULSE 58; TEMP 97.4
== END 2020-11-02 10:15 | disposition other institution (70) | DRG 774 ==
LOC: YASAS 12:09 → Y6N 15:01
PROVIDERS: ADMIT Allergy & Immunology; ATTEND Allergy & Immunology
PROC: HZ2ZZZZ Detoxification Services for Substance Abuse Treatment (ICD-10-PCS; principal; 2020-10-28)
DX: F10.230 Alcohol dependence with withdrawal, uncomplicated (principal); F14.20 Cocaine dependence, uncomplicated; F12.20 Cannabis dependence, uncomplicated; F17.210 Nicotine dependence, cigarettes, uncomplicated; F19.282 Other psychoactive substance dependence with psychoactive substance-induced sleep disorder; F31.9 Bipolar disorder, unspecified; F43.10 Post-traumatic stress disorder, unspecified; E86.0 Dehydration; E78.5 Hyperlipidemia, unspecified; I10 Essential (primary) hypertension; K21.9 Gastro-esophageal reflux disease without esophagitis; L30.9 Dermatitis, unspecified; M06.9 Rheumatoid arthritis, unspecified; R01.1 Cardiac murmur, unspecified; Z62.810 Personal history of physical and sexual abuse in childhood; Z86.2 Personal history of diseases of the blood and blood-forming organs and certain disorders involving the immune mechanism; Z88.6 Allergy status to analgesic agent; Z91.011 Allergy to milk products
CPT/HCPCS: 36415; 71046-TC-FY; 80053; 81003; 85027; 86780; 87389; C9803; J2794; U0003

== ENCOUNTER 2020-11-02 10:44 | Inpatient (IN) | payer OTHER ==
[2020-11-02] MEDS ORDERED: P-EPHED 60MG/TRIPROLIDI 2.5MG TABLET PO PRN (11:26)
[2020-11-02] MEDS ORDERED: guaiFENesin 200 MG/10 ML 10 ML UNIT-DOSE CUPS PO PRN (11:26)
[2020-11-02] MEDS ORDERED: MAG HYDROX/AL HYDROX/SIMETH 30 ML UNIT-DOSE CUP PO PRN (11:26)
[2020-11-02] MEDS ORDERED: NICOTINE POLACRILEX 2 MG GUM BUC PRN (11:26)
[2020-11-02] MEDS ORDERED: MENTHOL/PHENOL 1 EACH UD MM PRN (11:26)
[2020-11-02] MEDS ORDERED: MAGNESIUM HYDROX 2400MG/30ML ORAL SUSPENSION 30 ML CUP PO PRN (11:26)
[2020-11-02] MEDS ORDERED: ACETAMINOPHEN 325 MG TABLET (FP) PO PRN (11:26)
[2020-11-02] MEDS ORDERED: LOPERAMIDE HCL 2 MG CAPSULE PO PRN (11:26)
[2020-11-02] MEDS ORDERED: MAGNESIUM CITRATE 300 ML BOTTLE PO PRN (11:26)
[2020-11-02] MEDS: METHOCARBAMOL 500 MG TABLET PO SCH ×3 (14:25→21:19)
[2020-11-02] MEDS: MINERAL OIL/PETROLAT/WATER TOPICAL CREAM 113 GM JAR TP SCH (16:50)
[2020-11-02] MEDS: THIAMINE HCL 100 MG TABLET (FP) PO SCH (21:18)
[2020-11-02] MEDS: MELATONIN 5 MG TABLETS PO SCH (21:18)
[2020-11-02] MEDS: busPIRone HCL 5 MG TABLET PO SCH (21:19)
[2020-11-02] MEDS: risperiDONE 1 MG TABLET PO SCH (21:20)
[2020-11-02] MEDS: NAPROXEN 500 MG TABLET PO PRN (21:20)
[2020-11-02] MEDS: FLUOCINONIDE 0.05% CREAM (15 GM TUBE) TP SCH (21:21)
[2020-11-02] MEDS ORDERED: PT OWN MED DRAWER 7, Y5N ONE (21:34)
[2020-11-02] MEDS ORDERED: busPIRone HCL 5 MG TABLET PO SCH (22:00)
[2020-11-03] MEDS ORDERED: PT OWN MED DRAWER 7, Y5N ONE (09:01)
[2020-11-03] MEDS: COLLOIDAL OATMEAL 1 BAR EACH TP PRN (09:56)
[2020-11-03] MEDS: METOPROLOL TARTRATE 50 MG TABLET (FP) PO SCH (09:58)
[2020-11-03] MEDS: PRENATAL VITAMINS W/ FOLIC ACID TABLET (FP) PO SCH (09:58)
[2020-11-03] MEDS: METHOCARBAMOL 500 MG TABLET PO SCH ×4 (09:58→21:23)
[2020-11-03] MEDS: risperiDONE 1 MG TABLET PO SCH ×2 (09:58→21:24)
[2020-11-03] MEDS: CITALOPRAM HYDROBROMIDE 10 MG TABLET PO SCH (09:58)
[2020-11-03] MEDS: MINERAL OIL/PETROLAT/WATER TOPICAL CREAM 113 GM JAR TP SCH (09:58)
[2020-11-03] MEDS: HYDROCHLOROTHIAZIDE 25 MG TABLET (FP) PO SCH (09:58)
[2020-11-03] MEDS: PANTOPRAZOLE 40 MG TABLET PO SCH (09:58)
[2020-11-03] MEDS: NIFEdipine E.R. 30 MG TABLET PO SCH (09:59)
[2020-11-03] MEDS ORDERED: risperiDONE 1 MG TABLET PO SCH (10:00)
[2020-11-03] MEDS: FLUOCINONIDE 0.05% CREAM (15 GM TUBE) TP SCH ×2 (10:00→21:24)
[2020-11-03] MEDS: NICOTINE 21 MG/24 HOURS TOPICAL PATCH TD SCH (10:00)
[2020-11-03] MEDS: MELATONIN 5 MG TABLETS PO SCH (21:23)
[2020-11-03] MEDS: THIAMINE HCL 100 MG TABLET (FP) PO SCH (21:23)
[2020-11-03] MEDS: busPIRone HCL 5 MG TABLET PO SCH (21:24)
[2020-11-04] MEDS ORDERED: PT OWN MED DRAWER 7, Y5N ONE ×2 (09:26→16:40)
[2020-11-04] MEDS: HYDROCHLOROTHIAZIDE 25 MG TABLET (FP) PO SCH (10:09)
[2020-11-04] MEDS: PANTOPRAZOLE 40 MG TABLET PO SCH (10:09)
[2020-11-04] MEDS: METHOCARBAMOL 500 MG TABLET PO SCH ×4 (10:09→21:22)
[2020-11-04] MEDS: METOPROLOL TARTRATE 50 MG TABLET (FP) PO SCH (10:09)
[2020-11-04] MEDS: risperiDONE 1 MG TABLET PO SCH ×2 (10:09→21:22)
[2020-11-04] MEDS: PRENATAL VITAMINS W/ FOLIC ACID TABLET (FP) PO SCH (10:10)
[2020-11-04] MEDS: CITALOPRAM HYDROBROMIDE 10 MG TABLET PO SCH (10:10)
[2020-11-04] MEDS: NIFEdipine E.R. 30 MG TABLET PO SCH (10:10)
[2020-11-04] MEDS: NICOTINE 21 MG/24 HOURS TOPICAL PATCH TD SCH (10:11)
[2020-11-04] MEDS: FLUOCINONIDE 0.05% CREAM (15 GM TUBE) TP SCH ×2 (10:11→21:22)
[2020-11-04] MEDS: MINERAL OIL/PETROLAT/WATER TOPICAL CREAM 113 GM JAR TP SCH (10:11)
[2020-11-04] MEDS: busPIRone HCL 5 MG TABLET PO SCH (21:22)
[2020-11-04] MEDS: NAPROXEN 500 MG TABLET PO PRN (21:22)
[2020-11-04] MEDS: hydrOXYzine PAMOATE 25 MG CAPSULE (FP) PO PRN (21:22)
[2020-11-04] MEDS: MELATONIN 5 MG TABLETS PO SCH (21:22)
[2020-11-04] MEDS: THIAMINE HCL 100 MG TABLET (FP) PO SCH (21:22)
[2020-11-05] MEDS ORDERED: PT OWN MED DRAWER 7, Y5N ONE (09:28)
[2020-11-05] MEDS: risperiDONE 1 MG TABLET PO SCH ×2 (10:31→21:59)
[2020-11-05] MEDS: METOPROLOL TARTRATE 50 MG TABLET (FP) PO SCH (10:31)
[2020-11-05] MEDS: hydrOXYzine PAMOATE 25 MG CAPSULE (FP) PO PRN (10:31)
[2020-11-05] MEDS: CITALOPRAM HYDROBROMIDE 10 MG TABLET PO SCH (10:31)
[2020-11-05] MEDS: PANTOPRAZOLE 40 MG TABLET PO SCH (10:31)
[2020-11-05] MEDS: FLUOCINONIDE 0.05% CREAM (15 GM TUBE) TP SCH ×2 (10:31→21:59)
[2020-11-05] MEDS: METHOCARBAMOL 500 MG TABLET PO SCH ×4 (10:31→21:59)
[2020-11-05] MEDS: PRENATAL VITAMINS W/ FOLIC ACID TABLET (FP) PO SCH (10:31)
[2020-11-05] MEDS: HYDROCHLOROTHIAZIDE 25 MG TABLET (FP) PO SCH (10:31)
[2020-11-05] MEDS: NIFEdipine E.R. 30 MG TABLET PO SCH (10:31)
[2020-11-05] MEDS: MINERAL OIL/PETROLAT/WATER TOPICAL CREAM 113 GM JAR TP SCH (10:31)
[2020-11-05] MEDS: NICOTINE 21 MG/24 HOURS TOPICAL PATCH TD SCH (10:32)
[2020-11-05] MEDS: MELATONIN 5 MG TABLETS PO SCH (21:59)
[2020-11-05] MEDS: busPIRone HCL 5 MG TABLET PO SCH (21:59)
[2020-11-05] MEDS: THIAMINE HCL 100 MG TABLET (FP) PO SCH (21:59)
[2020-11-06] MEDS: METOPROLOL TARTRATE 50 MG TABLET (FP) PO SCH (10:38)
[2020-11-06] MEDS: PRENATAL VITAMINS W/ FOLIC ACID TABLET (FP) PO SCH (10:38)
[2020-11-06] MEDS: risperiDONE 1 MG TABLET PO SCH ×2 (10:39→21:22)
[2020-11-06] MEDS: HYDROCHLOROTHIAZIDE 25 MG TABLET (FP) PO SCH (10:39)
[2020-11-06] MEDS: PANTOPRAZOLE 40 MG TABLET PO SCH (10:39)
[2020-11-06] MEDS: NICOTINE 21 MG/24 HOURS TOPICAL PATCH TD SCH (10:39)
[2020-11-06] MEDS: CITALOPRAM HYDROBROMIDE 10 MG TABLET PO SCH (10:39)
[2020-11-06] MEDS: METHOCARBAMOL 500 MG TABLET PO SCH ×4 (10:39→21:22)
[2020-11-06] MEDS: NIFEdipine E.R. 30 MG TABLET PO SCH (10:39)
[2020-11-06] MEDS: MINERAL OIL/PETROLAT/WATER TOPICAL CREAM 113 GM JAR TP SCH (10:40)
[2020-11-06] MEDS: FLUOCINONIDE 0.05% CREAM (15 GM TUBE) TP SCH ×2 (10:40→22:18)
[2020-11-06] MEDS: MELATONIN 5 MG TABLETS PO SCH (21:22)
[2020-11-06] MEDS: busPIRone HCL 5 MG TABLET PO SCH (21:22)
[2020-11-06] MEDS: THIAMINE HCL 100 MG TABLET (FP) PO SCH (21:22)
[2020-11-06] MEDS: NAPROXEN 500 MG TABLET PO PRN (21:23)
[2020-11-07] MEDS: HYDROCHLOROTHIAZIDE 25 MG TABLET (FP) PO SCH (11:03)
[2020-11-07] MEDS: PANTOPRAZOLE 40 MG TABLET PO SCH (11:03)
[2020-11-07] MEDS: risperiDONE 1 MG TABLET PO SCH ×2 (11:03→21:44)
[2020-11-07] MEDS: NIFEdipine E.R. 30 MG TABLET PO SCH (11:03)
[2020-11-07] MEDS: CITALOPRAM HYDROBROMIDE 10 MG TABLET PO SCH (11:04)
[2020-11-07] MEDS: FLUOCINONIDE 0.05% CREAM (15 GM TUBE) TP SCH ×2 (11:04→23:06)
[2020-11-07] MEDS: METOPROLOL TARTRATE 50 MG TABLET (FP) PO SCH (11:04)
[2020-11-07] MEDS: METHOCARBAMOL 500 MG TABLET PO SCH ×4 (11:05→21:44)
[2020-11-07] MEDS: MINERAL OIL/PETROLAT/WATER TOPICAL CREAM 113 GM JAR TP SCH (11:05)
[2020-11-07] MEDS: NICOTINE 21 MG/24 HOURS TOPICAL PATCH TD SCH (11:05)
[2020-11-07] MEDS: PRENATAL VITAMINS W/ FOLIC ACID TABLET (FP) PO SCH (11:05)
[2020-11-07] MEDS: THIAMINE HCL 100 MG TABLET (FP) PO SCH (21:44)
[2020-11-07] MEDS: hydrOXYzine PAMOATE 25 MG CAPSULE (FP) PO PRN (21:44)
[2020-11-07] MEDS: NAPROXEN 500 MG TABLET PO PRN (21:44)
[2020-11-07] MEDS: MELATONIN 5 MG TABLETS PO SCH (21:44)
[2020-11-07] MEDS: busPIRone HCL 5 MG TABLET PO SCH (21:44)
[2020-11-08] MEDS: PRENATAL VITAMINS W/ FOLIC ACID TABLET (FP) PO SCH (10:35)
[2020-11-08] MEDS: MINERAL OIL/PETROLAT/WATER TOPICAL CREAM 113 GM JAR TP SCH (10:35)
[2020-11-08] MEDS: NICOTINE 21 MG/24 HOURS TOPICAL PATCH TD SCH (10:35)
[2020-11-08] MEDS: NAPROXEN 500 MG TABLET PO PRN ×2 (10:36→21:35)
[2020-11-08] MEDS: hydrOXYzine PAMOATE 25 MG CAPSULE (FP) PO PRN ×2 (10:36→21:35)
[2020-11-08] MEDS: risperiDONE 1 MG TABLET PO SCH ×2 (10:36→21:35)
[2020-11-08] MEDS: METHOCARBAMOL 500 MG TABLET PO SCH ×4 (10:36→21:35)
[2020-11-08] MEDS: PANTOPRAZOLE 40 MG TABLET PO SCH (10:36)
[2020-11-08] MEDS: HYDROCHLOROTHIAZIDE 25 MG TABLET (FP) PO SCH (10:36)
[2020-11-08] MEDS: FLUOCINONIDE 0.05% CREAM (15 GM TUBE) TP SCH ×2 (10:37→21:38)
[2020-11-08] MEDS: METOPROLOL TARTRATE 50 MG TABLET (FP) PO SCH (10:37)
[2020-11-08] MEDS: CITALOPRAM HYDROBROMIDE 10 MG TABLET PO SCH (10:37)
[2020-11-08] MEDS: NIFEdipine E.R. 30 MG TABLET PO SCH (10:38)
[2020-11-08] MEDS: THIAMINE HCL 100 MG TABLET (FP) PO SCH (21:35)
[2020-11-08] MEDS: MELATONIN 5 MG TABLETS PO SCH (21:35)
[2020-11-08] MEDS: busPIRone HCL 5 MG TABLET PO SCH (21:40)
[2020-11-09] MEDS: HYDROCHLOROTHIAZIDE 25 MG TABLET (FP) PO SCH (10:31)
[2020-11-09] MEDS: PANTOPRAZOLE 40 MG TABLET PO SCH (10:31)
[2020-11-09] MEDS: risperiDONE 1 MG TABLET PO SCH ×2 (10:31→21:17)
[2020-11-09] MEDS: PRENATAL VITAMINS W/ FOLIC ACID TABLET (FP) PO SCH (10:31)
[2020-11-09] MEDS: METHOCARBAMOL 500 MG TABLET PO SCH ×4 (10:31→21:17)
[2020-11-09] MEDS: NIFEdipine E.R. 30 MG TABLET PO SCH (10:32)
[2020-11-09] MEDS: CITALOPRAM HYDROBROMIDE 10 MG TABLET PO SCH (10:32)
[2020-11-09] MEDS: NAPROXEN 500 MG TABLET PO PRN ×2 (10:33→21:17)
[2020-11-09] MEDS: FLUOCINONIDE 0.05% CREAM (15 GM TUBE) TP SCH ×2 (10:35→22:05)
[2020-11-09] MEDS: NICOTINE 21 MG/24 HOURS TOPICAL PATCH TD SCH (10:35)
[2020-11-09] MEDS: MINERAL OIL/PETROLAT/WATER TOPICAL CREAM 113 GM JAR TP SCH (10:35)
[2020-11-09] MEDS: METOPROLOL TARTRATE 50 MG TABLET (FP) PO SCH (13:13)
[2020-11-09] MEDS: busPIRone HCL 5 MG TABLET PO SCH (21:17)
[2020-11-09] MEDS: THIAMINE HCL 100 MG TABLET (FP) PO SCH (21:18)
[2020-11-09] MEDS: MELATONIN 5 MG TABLETS PO SCH (22:05)
[2020-11-10] MEDS: HYDROCHLOROTHIAZIDE 25 MG TABLET (FP) PO SCH (10:24)
[2020-11-10] MEDS: risperiDONE 1 MG TABLET PO SCH ×2 (10:24→21:00)
[2020-11-10] MEDS: PRENATAL VITAMINS W/ FOLIC ACID TABLET (FP) PO SCH (10:24)
[2020-11-10] MEDS: METHOCARBAMOL 500 MG TABLET PO SCH ×4 (10:24→21:00)
[2020-11-10] MEDS: METOPROLOL TARTRATE 50 MG TABLET (FP) PO SCH (10:24)
[2020-11-10] MEDS: PANTOPRAZOLE 40 MG TABLET PO SCH (10:24)
[2020-11-10] MEDS: NICOTINE 21 MG/24 HOURS TOPICAL PATCH TD SCH (10:25)
[2020-11-10] MEDS: NIFEdipine E.R. 30 MG TABLET PO SCH (10:25)
[2020-11-10] MEDS: CITALOPRAM HYDROBROMIDE 10 MG TABLET PO SCH (10:25)
[2020-11-10] MEDS: FLUOCINONIDE 0.05% CREAM (15 GM TUBE) TP SCH ×2 (10:27→23:53)
[2020-11-10] MEDS: MINERAL OIL/PETROLAT/WATER TOPICAL CREAM 113 GM JAR TP SCH (10:27)
[2020-11-10] MEDS: NAPROXEN 500 MG TABLET PO PRN ×2 (10:28→21:00)
[2020-11-10] MEDS: THIAMINE HCL 100 MG TABLET (FP) PO SCH ×2 (20:57→21:00)
[2020-11-10] MEDS: busPIRone HCL 5 MG TABLET PO SCH (21:00)
[2020-11-10] MEDS: MELATONIN 5 MG TABLETS PO SCH (21:01)
[2020-11-11] MEDS: PRENATAL VITAMINS W/ FOLIC ACID TABLET (FP) PO SCH (10:20)
[2020-11-11] MEDS: NICOTINE 21 MG/24 HOURS TOPICAL PATCH TD SCH (10:20)
[2020-11-11] MEDS: MINERAL OIL/PETROLAT/WATER TOPICAL CREAM 113 GM JAR TP SCH (10:21)
[2020-11-11] MEDS: METHOCARBAMOL 500 MG TABLET PO SCH ×4 (10:21→21:06)
[2020-11-11] MEDS: PANTOPRAZOLE 40 MG TABLET PO SCH (10:21)
[2020-11-11] MEDS: HYDROCHLOROTHIAZIDE 25 MG TABLET (FP) PO SCH (10:21)
[2020-11-11] MEDS: risperiDONE 1 MG TABLET PO SCH ×2 (10:21→21:06)
[2020-11-11] MEDS: METOPROLOL TARTRATE 50 MG TABLET (FP) PO SCH (10:22)
[2020-11-11] MEDS: CITALOPRAM HYDROBROMIDE 10 MG TABLET PO SCH (10:23)
[2020-11-11] MEDS: NIFEdipine E.R. 30 MG TABLET PO SCH (10:23)
[2020-11-11] MEDS: FLUOCINONIDE 0.05% CREAM (15 GM TUBE) TP SCH ×2 (10:23→21:07)
[2020-11-11] MEDS ORDERED: PT OWN MED DRAWER 7, Y5N ONE ×2 (20:06→21:05)
[2020-11-11] MEDS: COLLOIDAL OATMEAL 1 BAR EACH TP PRN (21:05)
[2020-11-11] MEDS: THIAMINE HCL 100 MG TABLET (FP) PO SCH (21:06)
[2020-11-11] MEDS: NAPROXEN 500 MG TABLET PO PRN (21:06)
[2020-11-11] MEDS: busPIRone HCL 5 MG TABLET PO SCH (21:06)
[2020-11-11] MEDS: MELATONIN 5 MG TABLETS PO SCH (21:06)
[2020-11-12] MEDS: HYDROCHLOROTHIAZIDE 25 MG TABLET (FP) PO SCH (10:21)
[2020-11-12] MEDS: PANTOPRAZOLE 40 MG TABLET PO SCH (10:21)
[2020-11-12] MEDS: METOPROLOL TARTRATE 50 MG TABLET (FP) PO SCH (10:21)
[2020-11-12] MEDS: CITALOPRAM HYDROBROMIDE 10 MG TABLET PO SCH (10:21)
[2020-11-12] MEDS: risperiDONE 1 MG TABLET PO SCH ×2 (10:21→21:27)
[2020-11-12] MEDS: METHOCARBAMOL 500 MG TABLET PO SCH ×4 (10:21→21:27)
[2020-11-12] MEDS: NICOTINE 21 MG/24 HOURS TOPICAL PATCH TD SCH (10:22)
[2020-11-12] MEDS: PRENATAL VITAMINS W/ FOLIC ACID TABLET (FP) PO SCH (10:22)
[2020-11-12] MEDS: NIFEdipine E.R. 30 MG TABLET PO SCH (10:23)
[2020-11-12] MEDS: FLUOCINONIDE 0.05% CREAM (15 GM TUBE) TP SCH ×2 (10:24→21:29)
[2020-11-12] MEDS: MINERAL OIL/PETROLAT/WATER TOPICAL CREAM 113 GM JAR TP SCH (10:46)
[2020-11-12] MEDS: MELATONIN 5 MG TABLETS PO SCH (21:27)
[2020-11-12] MEDS: THIAMINE HCL 100 MG TABLET (FP) PO SCH (21:27)
[2020-11-12] MEDS: hydrOXYzine PAMOATE 25 MG CAPSULE (FP) PO PRN (21:27)
[2020-11-12] MEDS: NAPROXEN 500 MG TABLET PO PRN (21:27)
[2020-11-12] MEDS: busPIRone HCL 5 MG TABLET PO SCH (21:29)
[2020-11-13] MEDS: risperiDONE 1 MG TABLET PO SCH ×2 (10:27→21:45)
[2020-11-13] MEDS: HYDROCHLOROTHIAZIDE 25 MG TABLET (FP) PO SCH (10:27)
[2020-11-13] MEDS: METHOCARBAMOL 500 MG TABLET PO SCH ×4 (10:27→21:45)
[2020-11-13] MEDS: NIFEdipine E.R. 30 MG TABLET PO SCH (10:28)
[2020-11-13] MEDS: PRENATAL VITAMINS W/ FOLIC ACID TABLET (FP) PO SCH (10:28)
[2020-11-13] MEDS: PANTOPRAZOLE 40 MG TABLET PO SCH (10:28)
[2020-11-13] MEDS: NICOTINE 21 MG/24 HOURS TOPICAL PATCH TD SCH (10:28)
[2020-11-13] MEDS: METOPROLOL TARTRATE 50 MG TABLET (FP) PO SCH (10:29)
[2020-11-13] MEDS: MINERAL OIL/PETROLAT/WATER TOPICAL CREAM 113 GM JAR TP SCH (10:29)
[2020-11-13] MEDS: CITALOPRAM HYDROBROMIDE 10 MG TABLET PO SCH (10:29)
[2020-11-13] MEDS: FLUOCINONIDE 0.05% CREAM (15 GM TUBE) TP SCH ×2 (10:30→21:46)
[2020-11-13] MEDS: MELATONIN 5 MG TABLETS PO SCH (21:45)
[2020-11-13] MEDS: THIAMINE HCL 100 MG TABLET (FP) PO SCH (21:45)
[2020-11-13] MEDS: NAPROXEN 500 MG TABLET PO PRN (21:45)
[2020-11-13] MEDS: hydrOXYzine PAMOATE 25 MG CAPSULE (FP) PO PRN (21:45)
[2020-11-13] MEDS: busPIRone HCL 5 MG TABLET PO SCH (21:45)
[2020-11-14] MEDS: NIFEdipine E.R. 30 MG TABLET PO SCH (10:32)
[2020-11-14] MEDS: risperiDONE 1 MG TABLET PO SCH ×2 (10:32→21:23)
[2020-11-14] MEDS: HYDROCHLOROTHIAZIDE 25 MG TABLET (FP) PO SCH (10:32)
[2020-11-14] MEDS: NICOTINE 21 MG/24 HOURS TOPICAL PATCH TD SCH (10:32)
[2020-11-14] MEDS: METHOCARBAMOL 500 MG TABLET PO SCH ×4 (10:32→21:23)
[2020-11-14] MEDS: PRENATAL VITAMINS W/ FOLIC ACID TABLET (FP) PO SCH (10:32)
[2020-11-14] MEDS: PANTOPRAZOLE 40 MG TABLET PO SCH (10:32)
[2020-11-14] MEDS: CITALOPRAM HYDROBROMIDE 10 MG TABLET PO SCH (10:33)
[2020-11-14] MEDS: FLUOCINONIDE 0.05% CREAM (15 GM TUBE) TP SCH ×2 (10:33→21:32)
[2020-11-14] MEDS: METOPROLOL TARTRATE 50 MG TABLET (FP) PO SCH (10:34)
[2020-11-14] MEDS: MINERAL OIL/PETROLAT/WATER TOPICAL CREAM 113 GM JAR TP SCH (10:34)
[2020-11-14] MEDS: COLLOIDAL OATMEAL 1 BAR EACH TP PRN (13:02)
[2020-11-14] MEDS: THIAMINE HCL 100 MG TABLET (FP) PO SCH (21:22)
[2020-11-14] MEDS: NAPROXEN 500 MG TABLET PO PRN (21:23)
[2020-11-14] MEDS: MELATONIN 5 MG TABLETS PO SCH (21:23)
[2020-11-14] MEDS: busPIRone HCL 5 MG TABLET PO SCH (21:23)
[2020-11-15] MEDS ORDERED: PT OWN MED DRAWER 7, Y5N ONE (08:48)
[2020-11-15] MEDS: PRENATAL VITAMINS W/ FOLIC ACID TABLET (FP) PO SCH (10:32)
[2020-11-15] MEDS: risperiDONE 1 MG TABLET PO SCH ×2 (10:32→21:48)
[2020-11-15] MEDS: PANTOPRAZOLE 40 MG TABLET PO SCH (10:32)
[2020-11-15] MEDS: METHOCARBAMOL 500 MG TABLET PO SCH ×4 (10:32→21:49)
[2020-11-15] MEDS: HYDROCHLOROTHIAZIDE 25 MG TABLET (FP) PO SCH (10:32)
[2020-11-15] MEDS: METOPROLOL TARTRATE 50 MG TABLET (FP) PO SCH (10:34)
[2020-11-15] MEDS: CITALOPRAM HYDROBROMIDE 10 MG TABLET PO SCH (10:34)
[2020-11-15] MEDS: NIFEdipine E.R. 30 MG TABLET PO SCH (10:35)
[2020-11-15] MEDS: NICOTINE 21 MG/24 HOURS TOPICAL PATCH TD SCH (10:35)
[2020-11-15] MEDS: MINERAL OIL/PETROLAT/WATER TOPICAL CREAM 113 GM JAR TP SCH (10:35)
[2020-11-15] MEDS: FLUOCINONIDE 0.05% CREAM (15 GM TUBE) TP SCH ×2 (10:36→21:49)
[2020-11-15] MEDS: THIAMINE HCL 100 MG TABLET (FP) PO SCH (21:48)
[2020-11-15] MEDS: busPIRone HCL 5 MG TABLET PO SCH (21:48)
[2020-11-15] MEDS: MELATONIN 5 MG TABLETS PO SCH (21:49)
[2020-11-16 08:55] VITALS: TEMP 97.6
[2020-11-16] MEDS: PRENATAL VITAMINS W/ FOLIC ACID TABLET (FP) PO SCH (10:11)
[2020-11-16] MEDS: HYDROCHLOROTHIAZIDE 25 MG TABLET (FP) PO SCH (10:11)
[2020-11-16] MEDS: METHOCARBAMOL 500 MG TABLET PO SCH (10:12)
[2020-11-16] MEDS: FLUOCINONIDE 0.05% CREAM (15 GM TUBE) TP SCH (10:12)
[2020-11-16] MEDS: risperiDONE 1 MG TABLET PO SCH (10:12)
[2020-11-16] MEDS: MINERAL OIL/PETROLAT/WATER TOPICAL CREAM 113 GM JAR TP SCH (10:12)
[2020-11-16] MEDS: PANTOPRAZOLE 40 MG TABLET PO SCH (10:12)
[2020-11-16] MEDS: NICOTINE 21 MG/24 HOURS TOPICAL PATCH TD SCH (10:12)
[2020-11-16] MEDS: METOPROLOL TARTRATE 50 MG TABLET (FP) PO SCH (10:13)
[2020-11-16] MEDS: CITALOPRAM HYDROBROMIDE 10 MG TABLET PO SCH (10:13)
[2020-11-16] MEDS: NIFEdipine E.R. 30 MG TABLET PO SCH (10:13)
[2020-11-16 12:37] VITALS: BP 122/75; PULSE 67
== END 2020-11-16 10:15 | disposition home or self-care (01) | DRG 772 ==
LOC: YASAS 10:44 → Y3E 10:45 → Y5N 11-04 16:11
PROVIDERS: ADMIT Allergy & Immunology; ATTEND Allergy & Immunology
PROC: HZ42ZZZ Group Counseling for Substance Abuse Treatment, Cognitive-Behavioral (ICD-10-PCS; principal; 2020-11-02)
DX: F10.20 Alcohol dependence, uncomplicated (principal); F14.20 Cocaine dependence, uncomplicated; F12.20 Cannabis dependence, uncomplicated; F17.210 Nicotine dependence, cigarettes, uncomplicated; F20.9 Schizophrenia, unspecified; F31.9 Bipolar disorder, unspecified; F19.282 Other psychoactive substance dependence with psychoactive substance-induced sleep disorder; F19.24 Other psychoactive substance dependence with psychoactive substance-induced mood disorder; F39 Unspecified mood [affective] disorder; F43.10 Post-traumatic stress disorder, unspecified; E78.5 Hyperlipidemia, unspecified; I10 Essential (primary) hypertension; K21.9 Gastro-esophageal reflux disease without esophagitis; L30.9 Dermatitis, unspecified; L60.8 Other nail disorders; M06.9 Rheumatoid arthritis, unspecified; Z62.810 Personal history of physical and sexual abuse in childhood; Z91.011 Allergy to milk products; Z88.6 Allergy status to analgesic agent
CPT/HCPCS: C9803; J2794; U0003

== ENCOUNTER 2021-01-11 14:43 | Inpatient (IN) | payer OTHER ==
[2021-01-11 21:05] VITALS: BMI 19.5
[2021-01-11] MEDS ORDERED: cloNIDine HCL 0.1 MG TABLET PO ONE (21:08)
[2021-01-11] MEDS ORDERED: cloNIDine HCL 0.1 MG TABLET ONE (21:09)
[2021-01-11] MEDS ORDERED: DICYCLOMINE HCL 10 MG CAPSULE PO PRN (21:17)
[2021-01-11] MEDS ORDERED: METHOCARBAMOL 500 MG TABLET PO PRN (21:17)
[2021-01-11] MEDS ORDERED: MAG HYDROX/AL HYDROX/SIMETH 30 ML UNIT-DOSE CUP PO PRN (21:17)
[2021-01-11] MEDS ORDERED: ACETAMINOPHEN 325 MG TABLET (FP) PO PRN ×2 (21:17)
[2021-01-11] MEDS ORDERED: hydrOXYzine PAMOATE 25 MG CAPSULE (FP) PO PRN (21:17)
[2021-01-11] MEDS ORDERED: guaiFENesin 200 MG/10 ML 10 ML UNIT-DOSE CUPS PO PRN (21:17)
[2021-01-11] MEDS ORDERED: MENTHOL/PHENOL 1 EACH UD MM PRN (21:17)
[2021-01-11] MEDS ORDERED: ONDANSETRON *ODT* 4 MG TABLET SL PRN (21:17)
[2021-01-11] MEDS ORDERED: P-EPHED 60MG/TRIPROLIDI 2.5MG TABLET PO PRN (21:17)
[2021-01-11] MEDS ORDERED: MAGNESIUM HYDROX 2400MG/30ML ORAL SUSPENSION 30 ML CUP PO PRN (21:17)
[2021-01-11] MEDS ORDERED: MAGNESIUM CITRATE 300 ML BOTTLE PO PRN (21:17)
[2021-01-11] MEDS ORDERED: NICOTINE POLACRILEX 2 MG GUM BUC PRN (21:17)
[2021-01-11] MEDS: THIAMINE HCL 100 MG TABLET (FP) PO SCH (23:05)
[2021-01-11] MEDS: MELATONIN 5 MG TABLETS PO SCH (23:05)
[2021-01-12] MEDS ORDERED: cloNIDine HCL 0.1 MG TABLET PO ONE (06:29)
[2021-01-12] MEDS ORDERED: chlordiazePOXIDE HCL 25 MG CAPSULE PO PRN (09:21)
[2021-01-12 10:01] LABS: HEMATOCRIT 40.9 % (32.4-45.2); HEMOGLOBIN 13.6 GM/dL (10.7-15.3); MCH 31.7 pg (25.7-33.7); MCHC 33.3 g/dl (32.0-36.0); MEAN CELL VOLUME 95.3 fl (80-96); MEAN PLT VOLUME 9.7 fl (7.5-11.1); PLATELET COUNT 295 K/MM3 (134-434); RBC 4.29 M/mm3 (3.60-5.2); RDW 14.4 % (11.6-15.6); WHITE BLOOD COUNT 6.6 K/mm3 (4.0-10.0)
[2021-01-12 10:15] LABS: BLOOD UREA NITROGEN 9.9 mg/dL (7-18); CALCIUM 8.5 mg/dL (8.5-10.1)
[2021-01-12 10:18] LABS: CREATININE 0.8 mg/dL (0.55-1.3)
[2021-01-12 10:19] LABS: BILIRUBIN,TOTAL 0.4 mg/dL (0.2-1)
[2021-01-12 10:20] LABS: TOT PROT 6.1 g/dl (6.4-8.2)
[2021-01-12] MEDS: chlordiazePOXIDE HCL 25 MG CAPSULE PO SCH ×3 (11:35→23:56)
[2021-01-12] MEDS: NIFEdipine E.R. 30 MG TABLET PO SCH (11:35)
[2021-01-12] MEDS: HYDROCHLOROTHIAZIDE 25 MG TABLET (FP) PO SCH (11:35)
[2021-01-12] MEDS: NICOTINE 21 MG/24 HOURS TOPICAL PATCH TD SCH (11:35)
[2021-01-12] MEDS: PRENATAL VITAMINS W/ FOLIC ACID TABLET (FP) PO SCH (11:36)
[2021-01-12] MEDS: PANTOPRAZOLE 20 MG TABLET PO SCH (11:36)
[2021-01-12] MEDS: METOPROLOL TARTRATE 50 MG TABLET (FP) PO SCH ×2 (11:36→22:36)
[2021-01-12] MEDS: busPIRone HCL 5 MG TABLET PO SCH ×2 (13:52→22:36)
[2021-01-12] MEDS: risperiDONE 1 MG TABLET PO SCH (13:52)
[2021-01-12] MEDS: CITALOPRAM HYDROBROMIDE 10 MG TABLET PO SCH (13:52)
[2021-01-12] MEDS: MELATONIN 5 MG TABLETS PO SCH (22:36)
[2021-01-12] MEDS: THIAMINE HCL 100 MG TABLET (FP) PO SCH (22:36)
[2021-01-13] MEDS: chlordiazePOXIDE HCL 25 MG CAPSULE PO SCH ×4 (06:38→22:32)
[2021-01-13] MEDS: NICOTINE 21 MG/24 HOURS TOPICAL PATCH TD SCH (11:13)
[2021-01-13] MEDS: HYDROCHLOROTHIAZIDE 25 MG TABLET (FP) PO SCH (11:13)
[2021-01-13] MEDS: METOPROLOL TARTRATE 50 MG TABLET (FP) PO SCH ×2 (11:13→22:31)
[2021-01-13] MEDS: NIFEdipine E.R. 30 MG TABLET PO SCH (11:13)
[2021-01-13] MEDS: busPIRone HCL 5 MG TABLET PO SCH ×2 (11:13→22:31)
[2021-01-13] MEDS: CITALOPRAM HYDROBROMIDE 10 MG TABLET PO SCH (11:13)
[2021-01-13] MEDS: PANTOPRAZOLE 20 MG TABLET PO SCH (11:13)
[2021-01-13] MEDS: PRENATAL VITAMINS W/ FOLIC ACID TABLET (FP) PO SCH (11:14)
[2021-01-13] MEDS: risperiDONE 1 MG TABLET PO SCH (13:32)
[2021-01-13] MEDS: MELATONIN 5 MG TABLETS PO SCH (22:31)
[2021-01-13] MEDS: THIAMINE HCL 100 MG TABLET (FP) PO SCH (22:31)
[2021-01-14 06:07] LABS: SARS-CoV-2 NAA Not Detected (Not Detected)
[2021-01-14] MEDS: chlordiazePOXIDE HCL 25 MG CAPSULE PO SCH ×2 (07:54→11:14)
[2021-01-14] MEDS: PRENATAL VITAMINS W/ FOLIC ACID TABLET (FP) PO SCH (11:11)
[2021-01-14] MEDS: risperiDONE 1 MG TABLET PO SCH (11:12)
[2021-01-14] MEDS: busPIRone HCL 5 MG TABLET PO SCH (11:12)
[2021-01-14] MEDS: HYDROCHLOROTHIAZIDE 25 MG TABLET (FP) PO SCH (11:12)
[2021-01-14] MEDS: PANTOPRAZOLE 20 MG TABLET PO SCH (11:12)
[2021-01-14] MEDS: CITALOPRAM HYDROBROMIDE 10 MG TABLET PO SCH (11:13)
[2021-01-14] MEDS: NIFEdipine E.R. 30 MG TABLET PO SCH (11:13)
[2021-01-14] MEDS: METOPROLOL TARTRATE 50 MG TABLET (FP) PO SCH (11:14)
[2021-01-14] MEDS: NICOTINE 21 MG/24 HOURS TOPICAL PATCH TD SCH (11:15)
[2021-01-14 11:59] VITALS: PULSE 62
[2021-01-14 14:58] VITALS: BP 141/90; TEMP 98.3
[2021-01-15] MEDS ORDERED: chlordiazePOXIDE HCL 10 MG CAPSULE PO PRN
[2021-01-15] MEDS ORDERED: chlordiazePOXIDE HCL 10 MG CAPSULE PO SCH (05:00)
[2021-01-16] MEDS ORDERED: chlordiazePOXIDE HCL 10 MG CAPSULE PO SCH (05:00)
[2021-01-17] MEDS ORDERED: chlordiazePOXIDE HCL 10 MG CAPSULE PO ONE (05:00)
== END 2021-01-14 15:32 | disposition left against medical advice (07) | DRG 770 ==
LOC: YASAS 14:43 → Y6N 22:12 → UNDOADMIN 22:12 → Y6N 01-12 10:27
PROVIDERS: ADMIT Allergy & Immunology; ATTEND Allergy & Immunology
PROC: HZ2ZZZZ Detoxification Services for Substance Abuse Treatment (ICD-10-PCS; principal; 2021-01-11)
DX: F10.230 Alcohol dependence with withdrawal, uncomplicated (principal); F14.20 Cocaine dependence, uncomplicated; F12.20 Cannabis dependence, uncomplicated; F17.210 Nicotine dependence, cigarettes, uncomplicated; F10.24 Alcohol dependence with alcohol-induced mood disorder; F19.24 Other psychoactive substance dependence with psychoactive substance-induced mood disorder; F19.282 Other psychoactive substance dependence with psychoactive substance-induced sleep disorder; F31.9 Bipolar disorder, unspecified; F25.9 Schizoaffective disorder, unspecified; F43.10 Post-traumatic stress disorder, unspecified; E86.0 Dehydration; E78.5 Hyperlipidemia, unspecified; I10 Essential (primary) hypertension; K21.9 Gastro-esophageal reflux disease without esophagitis; L30.9 Dermatitis, unspecified; M06.9 Rheumatoid arthritis, unspecified; B35.1 Tinea unguium; Z62.810 Personal history of physical and sexual abuse in childhood; Z88.8 Allergy status to other drugs, medicaments and biological substances; Z91.011 Allergy to milk products; Z91.14 Patient's other noncompliance with medication regimen
CPT/HCPCS: 36415; 80053; 82962; 85027; 86780; C9803; J0735; J2794; U0003; U0005